=== PATIENT | female | born 1955 | race Caucasian/White ===

== ENCOUNTER 2020-07-26 04:55 | Inpatient (IN) | payer SELFPAY ==
[~2020-07-26] VITALS: Ht 162.6 cm; Wt 67.6 kg
[2020-07-26] VITALS (15 sets, daily range): BP systolic 74–146; BP diastolic 46–128
[2020-07-26] MEDS ORDERED: METHYLPREDNISOLONE SOD SUCC 125 MG/2ML VIAL ONE (05:19)
[2020-07-26] MEDS ORDERED: ALBUTEROL SULF 0.083% NEB SOLN 3 ML NEB ONE (05:32)
[2020-07-26] MEDS ORDERED: CEFEPIME 1GM/NS 0.9% 50 ML 50 ML IV ONE (05:47)
[2020-07-26] MEDS ORDERED: SODIUM CHLORIDE 0.9% 1000ML 2,000 ML ONE (05:47)
[2020-07-26] MEDS ORDERED: SODIUM CHLORIDE 0.9% 1000ML 700 ML IV STA (06:32)
[2020-07-26] MEDS ORDERED: SODIUM CHLORIDE 0.9% 1000ML 1,000 ML IV STA (06:32)
[2020-07-26] MEDS ORDERED: CEFEPIME 1GM/NS 0.9% 50 ML 50 ML IV STA (06:32)
[2020-07-26] MEDS ORDERED: ALBUTEROL/IPRATROPIUM 3 ML NEB NEB ONE (06:45)
[2020-07-26] MEDS ORDERED: METHYLPREDNISOLONE SOD SUCC 125 MG/2ML VIAL IV ONE (06:45)
[2020-07-26 06:53] LABS: B-TYPE NATRIURETIC PEPTIDE2 278.6 pg/mL (0-100)
[2020-07-26 06:55] LABS: CALCIUM 9.4 mg/dL (8.4-10.2); CREATINE KINASE MB 1.3 ng/mL (0-5.0); CREATININE, SERUM 1.04 mg/dL (0.57-1.11)
--- NOTE | 2020-07-26 06:57 | NUR ---
walking rounds with mago frank
[2020-07-26 07:02] LABS: BASOPHILS % 0.4 % (0.0-1.0); EOSINOPHILS # (AUTO) 0.1 (0.0-0.4); HEMATOCRIT 40.8 % (34.2-44.1); HEMOGLOBIN 13.4 g/dL (12.0-16.0); LYMPHOCYTES # (AUTO) 1.5 (1.0-3.2); LYMPHOCYTES % 15.1 % (18.0-39.1); MEAN CORPUSCULAR HEMOGLOBIN 34.1 pg (28-32); MEAN CORPUSCULAR HGB CONC 32.8 g/dL (31-35); MEAN CORPUSCULAR VOLUME 103.8 fL (81-99); MONOCYTES # (AUTO) 0.7 (0.2-0.8); MONOCYTES % 6.8 % (4.4-11.3); NEUTROPHILS # (AUTO) 7.8 (2.1-6.9); NEUTROPHILS % 76.4 % (38.7-80.0); PLATELET COUNT 193 x10e3/uL (140-360); RED BLOOD COUNT 3.93 x10e6/uL (3.6-5.1); RED CELL DISTRIBUTION WIDTH 13.7 % (11.7-14.4)
[2020-07-26 07:09] LABS: ALBUMIN 3.7 g/dL (3.5-5.0); ALBUMIN/GLOBULIN RATIO 1.1 (0.8-2.0)
[2020-07-26] MEDS ORDERED: VANCOMYCIN 1GM/NS 250 ML 250 ML IV ONE (07:15)
[2020-07-26] MEDS ORDERED: VANCOMYCIN 1GM/NS 250 ML 250 ML ONE (07:18)
[2020-07-26] MEDS ORDERED: SODIUM CHLORIDE 0.9% 1000ML 1,000 ML IV SCH (07:30)
[2020-07-26] MEDS: AZITHROMYCIN 500MG/NS 250 ML 250 ML IV SCH (08:06)
[2020-07-26] MEDS ORDERED: METOPROLOL TARTRATE INJ 1 MG/ML VIAL IV PRN (08:30)
[2020-07-26] MEDS ORDERED: POLYETHYLENE GLYCOL 3350 17 GM PACK PO PRN (08:30)
[2020-07-26] MEDS ORDERED: ONDANSETRON HCL INJ 2MG/ML 2ML 2 MG/ML VIAL IV PRN (08:30)
[2020-07-26] MEDS: DOCUSATE SODIUM 100 MG CAP PO SCH ×2 (09:00→15:29)
[2020-07-26 09:37] LABS: BILIRUBIN,URINE NEGATIVE (NEGATIVE); CLARITY,URINE CLEAR (CLEAR); COLOR,URINE YELLOW (YELLOW); KETONES,URINE NEGATIVE (NEGATIVE); LEUKOCYTE ESTERASE ,URINE NEGATIVE (NEGATIVE); NITRITE,URINE NEGATIVE (NEGATIVE); PROTEIN,URINE DIPSTICK NEGATIVE (NEGATIVE); URINE UROBILINOGEN 0.2 mg/dL (0.2 - 1)
[2020-07-26 09:38] LABS: EPITHELIAL CELLS,URINE RARE /LPF; MUCUS,URINE FEW (RARE); WBC,URINE (MAN) 0-5 /HPF (0-5)
[2020-07-26] MEDS ORDERED: SODIUM CHLORIDE 0.9% 50ML 50 ML ONE (09:38)
[2020-07-26] MEDS ORDERED: IOPAMIDOL 370 MG/ML 200 ML INFUS..BTL INJ ONE ×2 (09:38→23:07)
--- NOTE | 2020-07-26 09:43 | Diagnostic Imaging Report ---
EXAM: CT Chest WITH contrast- Pulmonary Embolism Protocol INDICATION: ^[id number] ^0840 ^SHORTNESS OF BREATH: PE PROTOCOL COMPARISON: X-ray dated the same day TECHNIQUE: Chest was scanned utilizing a multidetector helical scanner from the lung apex through the level of the diaphragm after administration of IV contrast. Thin section reconstructions were obtained with special concentration on the pulmonary arteries. Coronal and sagittal reformations were obtained. Pulmonary embolism protocol was performed. IV CONTRAST: 100 cc of Isovue 370 RADIATION DOSE: Total DLP: 437 mGy*cm Dose modulation, iterative reconstruction, and/or weight based adjustment of the mA/kV was utilized to reduce the radiation dose to as low as reasonably achievable. COMPLICATIONS: None FINDINGS: LINES/ TUBES: None. PULMONARY ARTERIES: Main pulmonary artery is of normal caliber measuring up to 2.6 cm in diameter. Negative for main, sagittal, lobar, segmental pulmonary embolism. LUNGS, PLEURA AND AND AIRWAYS: There is severe scarring at the right lung apex with loculated pleural fluid and pleural thickening. Mild to moderate paraseptal and centrilobular emphysematous changes are noted. Small basilar pleural effusions are noted. There are multifocal groundglass opacities throughout the lingula, left lower lobe and right lower lobe. Direct origin of the right upper lobe bronchus on the mainstem trachea is noted, this area appears to be occluded. The remaining large airways are patent. HEART AND MEDIASTINUM: The thyroid gland is normal. Multiple enlarged mediastinal lymph nodes are noted. No suspicious hilar or axillary adenopathy. The heart is normal in size. No evidence of right ventricular enlargement or bowing of the interventricular septum. There is no pericardial effusion. Thoracic aorta demonstrates moderate multifocal calcified atherosclerotic changes. Coronary artery calcifications are noted. 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 Large amount of plaque is identified the origins of the celiac and superior mesenteric artery. 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 Multiple scattered calcifications are identified throughout the liver BONES: No acute osseous abnormality. Diffuse osseous demineralization is noted. No suspicious lytic or blastic lesion is identified. SOFT TISSUES: Unremarkable. IMPRESSION: 1. Negative for pulmonary embolism or secondary signs of right heart strain. 2. Multifocal groundglass opacities within the lingula, right and left lower lobes concerning for atypical multifocal infection. Consider aspiration in the appropriate clinical setting. Small bilateral pleural effusions are noted. Probable reactive mediastinal adenopathy is noted. 3. Background of centrilobular and paraseptal emphysematous changes with severe right apical scarring/pleural thickening, likely related to chronic right upper lobe atelectasis. Consider obtaining any prior outside hospital CT imaging for comparison versus follow-up CT in 3-6 months to document stability. 4. 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 Moderate plaque is identified the origins of the celiac artery. Signed by: Yrn Silva MD on 07/26/2020 9:39 AM
--- NOTE | 2020-07-26 09:44 | Diagnostic Imaging Report ---
TECHNIQUE: Frontal view of the chest. INDICATION: ^[id number] ^0530 ^SHORTNESS OF BREATH COMPARISON: CT chest performed the same day DISCUSSION: Limited evaluation due to portable technique. Lines and hardware: Overlying EKG leads are noted. Heart and mediastinum: Within normal limits. Lungs and pleura: Right apical opacity probably relates to chronic right upper lobe atelectasis/scarring. Multifocal ill-defined interstitial opacities are noted throughout the lungs. Question superimposed consolidation at the right lung base. Soft tissues and bones: No acute abnormality. IMPRESSION: Multifocal interstitial airspace opacities with chronic appearing scarring/atelectasis of the right upper lobe/apical pleura. See separately reported CT chest for further details. Signed by: Yrn Silva MD on 07/26/2020 9:41 AM
[2020-07-26 09:59] LABS: ABG PCO2 35 mmHg (35-45); ABG PH 7.35 (7.35-7.45)
[2020-07-26 10:00] LABS: ABG HCO3 19 mmol/L (22-26); ABG PO2 130 mmHg (80-105); ABG TCO2 19.4
[2020-07-26] MEDS: FAMOTIDINE 20 MG/2 ML VIAL IV SCH ×2 (10:37→16:28)
[2020-07-26] MEDS: ALBUTEROL SULF 0.083% NEB SOLN 3 ML NEB NEB SCH ×2 (11:00→15:00)
[2020-07-26] MEDS: MEROPENEM 1GM 100 ML IV SCH ×2 (11:19→21:26)
--- NOTE | 2020-07-26 12:39 | Consultation ---
DATE OF CONSULTATION: 07/26/2020 PULMONARY CRITICAL CARE CONSULTATION: CHIEF COMPLAINT: Dyspnea and difficulty breathing. HISTORY OF PRESENT ILLNESS: The patient is a 64-year-old woman. She has a history of a right upper lobe lobectomy for a Pancoast tumor. She also has a history of COPD. She required hospitalization four weeks ago at [facility] for pneumonia with sepsis and respiratory failure. Since leaving the hospital, she has required some inhaler therapy and she has been awaiting an outpatient appointment with Dr. Dominique Ham at the [facility]. Recently, she noted more difficulty breathing as well as increased congestion and cough. She does not complain of fevers or chest pain. PAST SURGICAL HISTORY: Status post right upper lobe lobectomy for Pancoast tumor. PAST MEDICAL HISTORY: 1. Hypertension. 2. Mitral valve disease. It was detected last month while the patient was at [facility]. 3. COPD. 4. Prior history of lung cancer. SOCIAL HISTORY: The patient quit smoking. She is not a drinker. ALLERGIES: THE PATIENT IS ALLERGIC TO AMLODIPINE, CIPROFLOXACIN, CLINDAMYCIN AND PENICILLINS. FAMILY HISTORY: Noncontributory. REVIEW OF SYSTEMS: The patient is afebrile. The patient has no headache or neck pain. The patient is not having any chest pain. She does have difficulty breathing and some cough. She has no abdominal pain. She has no nausea or vomiting. She does complain of some leg edema. PHYSICAL EXAMINATION: VITAL SIGNS: The blood pressure is 94/64, saturation is now 98% on BiPAP and the heart rate is 110 to 120. T-max is 99.5. HEENT: Shows no facial swelling or erythema. LYMPHATIC Shows no submandibular, cervical, or supraclavicular adenopathy. CARDIAC: Reveals regular rate and rhythm with normal S1 and S2. LUNGS: Auscultation of lungs reveals decreased breath sounds at the bases. There is a prolonged expiratory phase. ABDOMEN: Soft and nontender. There is no rebound or guarding. EXTREMITIES: Shows 1 to 2+ leg edema. LABORATORY DATA: White blood cell count is 10.1, hemoglobin is 13.4 and platelet count is 193. BUN to creatinine ratio is 11 to 1.04. Carbon dioxide is 22 and the other electrolytes are within normal limits. RADIOGRAPHIC DATA: CT scan of the chest shows no pulmonary embolism. There are some ground-glass opacities in the lingula, right and left lower lobes, concerning for possible infection. The patient also has some emphysema. IMPRESSION: 1. Acute on chronic respiratory failure requiring salvage with BiPAP. 2. Aspiration pneumonia with sepsis, present on admission. 3. Chronic obstructive pulmonary disease with acute exacerbation. 4. Remote history of lung cancer. 5. Chronic systolic congestive heart failure. 6. Mitral valve disease. PLAN: 1. The patient will receive broad-spectrum antibiotics to cover for any healthcare acquired pathogens. 2. The patient has received intravenous fluid bolus for sepsis. 3. Solu-Medrol. 4. Continue BiPAP as needed. 5. Repeat echocardiogram. 6. Diuretics if necessary. Flex Juarez MD [facility]/MODL /[id number]
[2020-07-26 13:42] LABS: CREATINE KINASE MB 1.8 ng/mL (0-5.0)
[2020-07-26] MEDS ORDERED: DIAZEPAM5 MG PO (14:05)
[2020-07-26] MEDS: IPRATROPIUM BROMIDE 0.02% 2.5 ML NEB NEB SCH ×2 (15:00→19:50)
[2020-07-26] MEDS: DIAZEPAM 2 MG TAB PO SCH (15:29)
[2020-07-26] MEDS: ACETAMINOPHEN 325 MG TAB PO PRN ×2 (15:30→23:46)
[2020-07-26] MEDS ORDERED: LACTATED RINGER'S 1,000 ML INJ SCH (16:30)
[2020-07-26] MEDS: LEVALBUTEROL HCL SOLN NEBU 0.63 MG/3 ML NEB INH PRN (19:50)
[2020-07-26 20:41] LABS: CREATINE KINASE MB 2.8 ng/mL (0-5.0)
[2020-07-26] MEDS ORDERED: DEXMEDETOMIDINE HCL 200 MCG in SODIUM CHLORIDE 0.9% 50ML 48 ML IV PRN (20:45)
[2020-07-26] MEDS ORDERED: DEXMEDETOMIDINE 200MCG/NS 50ML 50 ML IV ONE (21:12)
[2020-07-26 21:20] LABS: ABG PCO2 33 mmHg (35-45); ABG PH 7.41 (7.35-7.45); ABG PO2 122 mmHg (80-105)
[2020-07-26 21:21] LABS: ABG HCO3 21 mmol/L (22-26); ABG TCO2 22
[2020-07-26] MEDS: METHYLPREDNISOLONE SOD SUCC 40 MG/ML VIAL 1ML IV SCH (21:26)
[2020-07-26] MEDS: HEPARIN SOD (PORCINE) 5,000 UNIT/ML VIAL SC SCH (21:26)
[2020-07-26] MEDS: BENZONATATE 100 MG CAP PO PRN (21:27)
--- NOTE | 2020-07-26 23:04 | Diagnostic Imaging Report ---
EXAMINATION: CHEST XRAY LINE PLACEMENT INDICATION: ^resp. distrss ^[id number] ^2215 ^Y COMPARISON: 07/26/2020 FINDINGS: AP view TUBES and LINES: Left PICC in place with tip projecting over mid SVC. LUNGS: Lungs are well inflated. Again seen diffuse bilateral airspace opacities, slightly improved on the right side. PLEURA: Small right pleural effusion. No visible pneumothorax. HEART AND MEDIASTINUM: The cardiomediastinal silhouette is unremarkable. BONES AND SOFT TISSUES: No acute osseous lesion. Soft tissues are unremarkable. UPPER ABDOMEN: No free air under the diaphragm. IMPRESSION: Left PICC in place with tip projecting over mid SVC. No pneumothorax. Bilateral airspace opacities, slightly improved on the right side. Small right pleural effusion. Signed by: Dr. Albino Shaffer MD on 07/26/2020 11:00 PM
[2020-07-26] MEDS: ONDANSETRON HCL INJ 2MG/ML 2ML 2 MG/ML VIAL IV PRN (23:46)
[2020-07-26] MEDS: TEMAZEPAM 15 MG CAP PO PRN (23:46)
[2020-07-27] VITALS (16 sets, daily range): BP systolic 64–111; BP diastolic 42–83
--- NOTE | 2020-07-27 02:56 | History and Physical ---
ADDENDUM: Dr. Serra with Infectious Disease has been consulted to assist in managing IV antibiotic. Her home medications, Spiriva, Tessalon Perles, and diazepam [place]. [place] [address] (as opposed to 679[address]). Modified barium swallow is planned for tomorrow. We will keep patient in ICU status for now. Dictated by Sebastian Coy, ELIZABETH MD [facility]/MODL /[id number]
[2020-07-27] MEDS: IPRATROPIUM BROMIDE 0.02% 2.5 ML NEB NEB SCH ×4 (03:25→20:45)
--- NOTE | 2020-07-27 04:07 | History and Physical ---
PRIMARY CARE PHYSICIAN: Dr. Ayan Ward. The patient states she has also seen in the past Dr. 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 Morrison. CHIEF COMPLAINT: Shortness of breath. HISTORY OF PRESENT ILLNESS: The patient is a 64-year-old female, former smoker, admitted via the emergency department by paramedics due to shortness of breath and wheezing with onset 1 hour prior to arrival, but apparently has been having shortness of breath above baseline for about one month. She has had previous COPD exacerbations. The patient had severe shortness of breath and bilateral wheezes in the emergency department and is requiring BiPAP currently in ICU care, bed 195. She had been at [facility] one month ago due to pneumonia with sepsis and respiratory failure. Since leaving the hospital she has required some inhaler therapy and has been awaiting an outpatient appointment with Dr. Dominique Ham at the [facility]. She also reports having an appointment with the general laborer at [facility] and she has mitral valve disease as well as calcifications of her subclavian arteries. PAST MEDICAL HISTORY: COPD (pneumonia with sepsis and respiratory failure about one month ago at [facility]), hypertension, mitral valve disease, non-small cell lung cancer, chronic respiratory failure, chronic systolic congestive heart failure. insomnia, TIA with bilateral peripheral vision loss and right hemiparesis, calcification of subclavian arteries, peptic ulcers, anxiety, cervical cancer, Montrell syndrome, migraines, osteoarthritis, scoliosis, seizures and reportedly antiepileptic medications make the seizures worse. PAST SURGICAL HISTORY: Hysterectomy, right upper lobe lobectomy for Pancoast tumor. FAMILY HISTORY: Father had lung collapse and Parkinson disease as well as CLL leukemia. Sister had COPD. Mother had heart disease. SOCIAL HISTORY: The patient lives with her . 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 She is considering having her sister come and live with her. She is a former smoker, half pack a day for 20 years, i.e. 10-pack years. She states she has not had alcohol 10 years. Denies any history of alcoholism. Denies previous use of illicit drugs. ALLERGIES: SHE HAS MULTIPLE ALLERGIES INCLUDING, BUT NOT LIMITED TO, AMLODIPINE, NITROFURANTOIN, SULFAMETHOXAZOLE, CLINDAMYCIN, ATENOLOL, HYOSCYAMINE, SALICYLATE, PENICILLINS, SODIUM PHOSPHATE, IRBESARTAN, TOPIRAMATE, LOSARTAN, PHENAZOPYRIDINE, FOSINOPRIL, CIPROFLOXACIN, AND CLINDAMYCIN. THE PATIENT IS KNOWN TO TAKE ATIVAN AND VALIUM AT HOME, BUT CURRENTLY NOT A COMPLETE LIST AVAILABLE. REVIEW OF SYSTEMS: A 14-point review of systems was completed. CONSTITUTIONAL: The patient states she is hot. Denies chills or fever. EYES: Decreased peripheral vision bilaterally, which she attributes to having history of TIA. EAR, NOSE, AND THROAT: Difficulty swallowing. RESPIRATORY: Chronic nonproductive cough, shortness of breath. GENITOURINARY: Denies difficulty urinating. PSYCHIATRIC: Denies history of psychiatric problems other than anxiety. INTEGUMENTARY: Denies skin problems. CARDIOVASCULAR: She had left chest pain earlier when she was short of breath, but this is improved. GASTROINTESTINAL: Admits to having acid reflux, nausea, bilateral lower abdominal pain, abdominal swelling especially on the left side of the abdomen and diarrhea. She states that she had two diarrheal stools yesterday. MUSCULOSKELETAL: Weakness on the right side secondary to TIA. NEUROLOGIC: Aforementioned right-sided weakness, headache, and dizziness. ENDOCRINE: Denies any history of prediabetes or diabetes. HEMATOLOGIC/LYMPHATIC: Denies any bleeding or bruising. All other systems negative except as noted above. PHYSICAL EXAMINATION: VITAL SIGNS: Temperature 98.1, pulse 123, blood pressure 83/63 subsequently 146/123, respiratory rate 34, oxygen saturation 98%. Height 5 feet 4 inches. Weight 156 pounds. BMI 26.77. GENERAL: Supine in bed, in no acute distress. Currently on BiPAP and able to communicate effectively. LUNGS: Minimal wheezing bilaterally. BiPAP settings 12/5, FiO2 of 35%, respiratory rate 14, I time 1.0, positive inspiratory pressure 13, minute ventilation 19.9. HEENT: EOMI, glasses. Sclerae anicteric. NECK: Supple. No lymphadenopathy, thyromegaly, or JVD noted. CARDIOVASCULAR: Regular rate and rhythm without murmur. Lactated Ringer's infusing at 100 mL an hour into a peripheral IV. ABDOMEN: Bowel sounds positive. Soft. Distention noted mostly on the left side of the abdomen. Li catheter with clear yellow urine. EXTREMITIES: No pitting edema. No clubbing, cyanosis, or signs of DVT. NEUROLOGICAL: GCS 15, nonfocal. LABORATORY DATA: WBCs 10.14, hemoglobin 13.4, hematocrit 40.8, platelets 193,000, neutrophils 76.4. ABG this morning, pH 7.35, pCO2 35, PO2 130, HC03 19, oxygen saturation 99%, base excess of -6, FiO2 35%. Sodium 143, potassium 4.0, chloride 105, CO2 22, anion gap 20, BUN 11, creatinine 1.04, estimated GFR 54, glucose 166, calcium 9.4, total bilirubin 0.4, AST 15, ALT 7, alkaline phosphatase 74. Creatine kinase 82, CK-MB 1.3, troponin I 0.014, total protein 7.1, albumin 3.7. Lactic acid 4.6, then 4.1, then 5.0 and at 1630 hours was 6.1. Creatine kinase 87, CK-MB 1.8, troponin I 0.005. Please note that was the second set of cardiac biomarkers. B-type natriuretic peptide 278.6. Urinalysis showed a small amount of blood, negative for nitrites, negative for leukocyte esterase, RBC 6-10, few mucus, no bacteria. Coronavirus PCR collected 07/26, collected with the results pending. Influenza types A and B were negative. Blood cultures x2 are pending. IMAGING/OTHER PROCEDURES: Preliminary echocardiogram has shown ejection fraction of 50%. Chest x-ray at 0530 in the morning showed multifocal interstitial airspace opacities with chronic appearing scarring/atelectasis of the right upper lobe/apical pleura. CT of the chest was negative for pulmonary embolism or secondary signs of right heart strain. 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 Moderate plaque is identified at the origins of the celiac artery. A 12-lead EKG showed sinus tachycardia with a heart rate of 126. ASSESSMENT/PLAN: 1. Acute on chronic respiratory failure with BiPAP salvage. Pulmonology/Critical Care Medicine has been consulted and following. Continue BiPAP for now and wean as tolerated. 2. Aspiration pneumonia with severe sepsis, POA, rule out COVID. Per the CT of the chest results the patient has multifocal ground-glass opacities concerning for atypical multifocal infection. Pulmonology following. Appreciate recommendations. Continue DuoNebs as well as vancomycin, azithromycin, Merrem Solu-Medrol 40 mg IV every 12 hours and IV antibiotics. Lactic acid progressively increasing, monitor closely. Continue lactated Ringer's at 100 mL an hour. We will avoid bolus at this particular time. WBCs 10.1, afebrile. PICC line placement pending. 3. Chronic obstructive pulmonary disease with acute exacerbation, remote history of lung cancer. Continue neb treatments. Pulmonology following. 4. Chronic systolic congestive heart failure with mitral valve disease. Strict intake and output. Continue to monitor chest x-ray results, preliminary ejection fraction 50%, monitor closely. Dr. Newton with Cardiology had followed the patient at [facility]. 5. Bilateral lower quadrant abdominal pain with nausea and diarrhea, left abdominal distention noted. Gastroenterology consulted. KUB ordered. The patient will likely also need a CT of the abdomen and pelvis. Appreciate recommendations from GI, abdominal pain control. 6. Acute on chronic anxiety. Apparently, the patient was taking diazepam 5 mg at home due to anxiety, she is currently on 2 mg. Monitor closely. 7. 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 Gastroenterology consulted, appreciate recommendations. 8. History of TIA with right-sided hemiparesis. Supportive care, offloading, turn q.2 hours. 9. Prophylaxis, IV Pepcid, SCDs. Inpatient status, billing code [id number], time spent 60 minutes. Dictated by Sebastian Coy, ELIZABETH MD [facility]/JARREDL /[id number]
[2020-07-27] MEDS: MEROPENEM 1GM 100 ML IV SCH ×3 (04:24→21:00)
[2020-07-27 04:52] LABS: BASOPHILS % 0.2 % (0.0-1.0); HEMATOCRIT 30.6 % (34.2-44.1); HEMOGLOBIN 10.2 g/dL (12.0-16.0); LYMPHOCYTES # (AUTO) 0.5 (1.0-3.2); LYMPHOCYTES % 4.8 % (18.0-39.1); MEAN CORPUSCULAR HEMOGLOBIN 34.9 pg (28-32); MEAN CORPUSCULAR HGB CONC 33.3 g/dL (31-35); MEAN CORPUSCULAR VOLUME 104.8 fL (81-99); MONOCYTES # (AUTO) 0.2 (0.2-0.8); MONOCYTES % 1.8 % (4.4-11.3); NEUTROPHILS # (AUTO) 9.7 (2.1-6.9); NEUTROPHILS % 92.5 % (38.7-80.0); PLATELET COUNT 151 x10e3/uL (140-360); RED BLOOD COUNT 2.92 x10e6/uL (3.6-5.1); RED CELL DISTRIBUTION WIDTH 14.4 % (11.7-14.4)
[2020-07-27 05:12] LABS: ALBUMIN/GLOBULIN RATIO 1.1 (0.8-2.0); ALKALINE PHOSPHATASE 56 IU/L (40-150); ANION GAP 12.3 mmol/L (8-16); BLOOD UREA NITROGEN 15 mg/dL (7-26); BUN/CREATININE RATIO 17 (6-25); CALCIUM 8.3 mg/dL (8.4-10.2); CARBON DIOXIDE 25 mmol/L (22-29); CHLORIDE 109 mmol/L (98-107); CREATININE, SERUM 0.88 mg/dL (0.57-1.11); EST GLOMERULAR FILTRATION RATE > 60 ML/MIN (60-); GLUCOSE 167 mg/dL (74-118); POTASSIUM 4.3 mmol/L (3.5-5.1); SODIUM 142 mmol/L (136-145)
[2020-07-27 05:14] LABS: ALANINE AMINOTRANSFERASE < 6 IU/L (0-55)
[2020-07-27 05:38] LABS: CHOL/HDL RATIO 5.9 (3.0-3.6); PHOSPHORUS 3.8 MG/DL (2.3-4.7)
[2020-07-27 05:56] LABS: THYROID STIMULATING HORMONE 0.62 uIU/mL (0.350-4.940)
[2020-07-27] MEDS ORDERED: NOREPINEPHRINE 8 MG/D5W 250 ML 250 ML ONE (06:18)
[2020-07-27] MEDS: NOREPINEPHRINE 8 MG/D5W 250 ML 250 ML IV PRN ×2 (06:38→22:49)
[2020-07-27] MEDS ORDERED: NOREPINEPHRINE 8 MG/D5W 250 ML 250 ML IV PRN (06:45)
[2020-07-27] MEDS: LEVALBUTEROL HCL SOLN NEBU 0.63 MG/3 ML NEB INH PRN ×2 (07:00→12:35)
--- NOTE | 2020-07-27 07:08 | Diagnostic Imaging Report ---
EXAM: Abdomen Views INDICATION: ^abd pain, Lt abd swelling, nausea, diarrhea, PUI ^Y COMPARISON: None FINDINGS: Nonobstructive bowel gas pattern. No signs of pneumoperitoneum. Moderate colonic stool burden. Right lower quadrant round calcification, projecting over right iliac wing, could be soft tissue calcification or osseous sclerotic focus. No acute osseous abnormality. Degenerative changes of lower lumbar spine. Vascular calcifications. Partially seen small right pleural effusion and airspace opacities. IMPRESSION: 1. Nonobstructive bowel gas pattern. 2. Moderate colonic stool burden, could represent constipation. Signed by: Dr. Albino Shaffer MD on 07/27/2020 7:05 AM
[2020-07-27] MEDS: VANCOMYCIN 1GM/NS 250 ML 250 ML IV SCH (08:41)
--- NOTE | 2020-07-27 11:08 | Consultation ---
DATE OF CONSULTATION: 07/27/2020 HISTORY OF PRESENT ILLNESS: This patient is a 64-year-old female, who has history of right upper lobe lobectomy for a Pancoast tumor and COPD. She was in a hospital in [place] for pneumonia. The patient comes in with shortness of breath, not feeling well. The patient is being admitted. Apparently, she was waiting for appointment at [facility]. She became short of breath. 911 was called. She was brought here. The patient, who have history of Pancoast tumor, hypertension, mitral valve disease, COPD, and lung cancer. PAST SURGICAL HISTORY: As above. SOCIAL HISTORY: There is no smoking, drug abuse, or alcohol abuse. She quit smoking some time ago. ALLERGIES: AMLODIPINE, CIPRO, CLINDAMYCIN, AND PENICILLIN. FAMILY HISTORY: Could not be obtained. REVIEW OF SYSTEMS: She does have shortness of breath. There is no fever. No nausea. No vomiting. The patient was admitted on July 26. The patient is currently in intensive care unit, on BiPAP. MEDICATION LIST: At present time, she is on vancomycin, meropenem, and azithromycin. LABORATORY DATA: Her blood cultures are negative. White count 10.53, hemoglobin of 10.2, and hematocrit 30. COVID-19 was negative. Influenza was negative. Sodium 142, potassium 4.3, and creatinine 0.88. Lactic acid 4.1 on admission. White count of 10.53, hemoglobin 10.2, and her platelet of 151. She had a chest CT, which was negative for pulmonary embolism, but multifocal glass opacities. PHYSICAL EXAMINATION: VITAL SIGNS: The patient, who is currently afebrile, heart rate 95, respiration 20, and blood pressure 71/48. HEENT: Normocephalic. NECK: Supple. CHEST: Few crackles bilateral. HEART: S1 and S2. ABDOMEN: Soft. Bowel sounds present. EXTREMITIES: No edema. SKIN: No rash. IMPRESSION: Sepsis on admission, respiratory failure, pneumonia, aspiration, superimposed, chronic obstructive pulmonary disease, multiple allergies, history of lung cancer before, history of congestive heart failure, and mitral valve disease. Agree with vancomycin and meropenem. Obtain sputum for cultures. Recheck CBC. Recheck chem panel. Respiratory support. We will follow. MD [facility]/CHERYL /[id number]
[2020-07-27] MEDS: METHYLPREDNISOLONE SOD SUCC 40 MG/ML VIAL 1ML IV SCH ×2 (11:12→21:00)
[2020-07-27] MEDS: FAMOTIDINE 20 MG/2 ML VIAL IV SCH ×2 (11:12→18:50)
[2020-07-27] MEDS: ASPIRIN 81 MG CHEW TAB PO SCH (11:13)
[2020-07-27] MEDS: HEPARIN SOD (PORCINE) 5,000 UNIT/ML VIAL SC SCH ×2 (11:13→21:01)
[2020-07-27] MEDS: DOCUSATE SODIUM 100 MG CAP PO SCH ×2 (11:13→18:50)
[2020-07-27] MEDS: AZITHROMYCIN 500MG/NS 250 ML 250 ML IV SCH (11:13)
[2020-07-27] MEDS: DIAZEPAM 2 MG TAB PO SCH ×2 (11:13→21:00)
[2020-07-27] MEDS: TIOTROPIUM 18 MCG INH POWDER INH SCH (11:14)
[2020-07-27] MEDS: BENZONATATE 100 MG CAP PO PRN (11:14)
--- NOTE | 2020-07-27 12:59 | Progress Note ---
DATE: 07/27/2020 SUBJECTIVE: The patient is receiving Levophed at 8 mcg through the PICC line. She was on nasal cannula this morning, but asked to be placed back on BiPAP. She reports some anxiety. PHYSICAL EXAMINATION: VITAL SIGNS: The blood pressure is now 100/50 with a pulse of 88. Respiratory rate is 18. HEENT: Shows no facial swelling or erythema. LYMPHATIC: Shows no submandibular, cervical, or supraclavicular adenopathy. CARDIAC: Reveals tachycardia with normal S1 and S2. LUNGS: Auscultation of lungs reveals decreased breath sounds at the bases. There is a prolonged expiratory phase. ABDOMEN: Soft and nontender. There is no rebound or guarding. EXTREMITIES: Show no leg edema or calf tenderness. There is no cyanosis or clubbing. SKIN: Shows no rashes. NEUROLOGICAL: Shows no focal abnormalities. LABORATORY DATA: The white blood cell count is 10.5 and the hemoglobin is 10.2. The platelet count is 151. The BUN to creatinine ratio is 15 to 0.88 and the other electrolytes are within normal limits. IMPRESSION: 1. [id number] respiratory failure. 2. Chronic obstructive pulmonary disease with acute exacerbation. 3. Remote history of lung cancer. 4. Pneumonia with sepsis, present on admission. 5. Chronic systolic congestive heart failure. 6. Mitral valve disease. PLAN: 1. Continue Levophed as needed. 2. Solu-Medrol. 3. Continue oxygen with BiPAP as needed. 4. Consider additional sedation with Precedex. 5. Prognosis is poor. Flex Juarez MD [facility]/MODL /[id number]
[2020-07-27] MEDS: DEXMEDETOMIDINE 200MCG/NS 50ML 50 ML IV PRN ×2 (13:35→22:50)
--- NOTE | 2020-07-27 15:40 | Diagnostic Imaging Report ---
Modified barium swallow, 07/27/2020. History: Dysphagia. Fluoro time: 2 min. Dose: 3.99 mGy (BEE) Discussion: Fluoroscopic observation and imaging of the oral cavity, oropharynx, and hypopharynx was performed in the lateral projection during swallowing of liquids and solids, administered by speech pathology. There is no evidence of penetration or aspiration. See speech pathologist report for complete findings. Signed by: Gilles Looney on 07/27/2020 3:36 PM
--- NOTE | 2020-07-27 17:30 | Progress Note ---
DATE: 07/27/2020 CONSULTING PHYSICIANS: 1. Dr. Shazia Serra with Infectious Disease. 2. Dr. Flex Juarez with Pulmonology. 3. Dr. Viet Goldsmith with Gastroenterology. SUBJECTIVE: The patient is supine in bed. Per the nurse, she is not getting out of bed, has not been in a chair. She ate 100% of her breakfast but not feeling well at lunch. The patient is asleep on BiPAP at present time of encounter about 3:00 p.m. in the afternoon. PHYSICAL EXAMINATION: VITAL SIGNS: Temperature 97.6, pulse 94, blood pressure 64/47, prior to that 73/42, at the time of encounter 90/61, respirations 16, oxygen saturation 97%. Intake and output 2000 mL in and 1000 mL out. GENERAL: Supine, asleep on BiPAP. LUNGS: Chronic nonproductive cough with complaints of shortness of breath. BiPAP settings 12/5, FiO2 35%. Respiratory rate 14, inspiratory time 1.0, positive inspiratory pressure of 13, minute ventilation 21.4. HEENT: Oropharynx clear. EOMI. NECK: Supple. CARDIOVASCULAR: Regular rate and rhythm. No murmur. Currently Levophed infusing at 15 mcg/minute. ABDOMEN: Bowel sounds positive. Soft, nontender, mild distention on the left side of the abdomen. EXTREMITIES: No pitting edema. No clubbing, cyanosis, or signs of DVT. NEUROLOGIC: GCS 14, eye 3, verbal 5, motor 6. Nonfocal. LABORATORY DATA: WBCs 10.53, hemoglobin 10.2, hematocrit 30.6, platelets 151. Sodium 142, potassium 4.3, chloride 109, CO2 25, anion gap 12.3, BUN 15, creatinine 0.88, estimated GFR greater than 60, glucose 167. Hemoglobin A1c 6.2%. Calcium 8.3, total bilirubin 0.4, AST 12, ALT less than 6, alkaline phosphatase 56, total protein 5.7, albumin 3.0, phosphorus 3.8, magnesium 2.0, triglycerides 211, cholesterol 252, LDL 167, HDL 43. TSH 0.62. Serology; coronavirus PCR negative. Influenza types A and B negative. Blood cultures with no growth after 24 hours. IMAGING/OTHER: Abdominal x-ray showed nonobstructive bowel gas pattern. Moderate colonic stool burden, could represent constipation. Modified barium swallow completed today and patient passed without signs of aspiration. Final echocardiogram results show moderate concentric left ventricular hypertrophy. Normal ejection fraction of 65% to 70% Diastolic filling pattern indicates impaired relaxation. Mild aortic valve sclerosis without stenosis. Moderate mitral annular calcification present. ASSESSMENT AND PLAN: 1. Acute on chronic respiratory failure with BiPAP salvage. Continue BiPAP p.r.n. and wean as tolerated. The patient tends to want to use BiPAP and uses it more or less as a crutch. Encouraged the patient not to use BiPAP unless really needed. 2. Aspiration pneumonia with severe sepsis, POA. CT of the chest has shown multifocal ground-glass opacities concerning for atypical multifocal infection. Pulmonology/Critical Care Medicine following. Continue Solu-Medrol, Merrem, azithromycin, vancomycin, and Duonebs. Lactic acid 4.1 (6.1). WBCs 10.5 (10.14), afebrile. Monitor closely. Continue care in ICU. Wean Levophed off as tolerated. 3. Chronic obstructive pulmonary disease with acute exacerbation, remote history of lung cancer. Continue neb treatments. 4. Chronic systolic congestive heart failure with mitral valve disease. Strict intake and output. Final echo ejection fraction 65% to 70%. Monitor chest x-ray results. 5. Bilateral lower quadrant abdominal pain with nausea and diarrhea, left abdominal distention. Gastroenterology following. KUB showed constipation with nonobstructive bowel gas pattern. Pain control. 6. Acute on chronic anxiety. The patient is on diazepam 2 mg q.12 hours. Apparently, she takes 5 mg at home due to anxiety. However, the patient was taking 5 mg twice a day at home, but this is an excessive dosage and monitor closely. 7. 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 Gastroenterology consulted. Appreciate recommendations. 8. History of TIA with right-sided hemiparesis. Supportive care. Offloading orders entered to get patient out of bed to chair. Nursing staff and physical therapy consulted to eval and treat. 9. Prophylaxis, IV Pepcid and SCDs. Inpatient status, billing code [id number], time spent 35 minutes. DISPOSITION: Case management consulted for LTACH evaluation. Dictated by Sebastian Coy, ELIZABETH MD THEODORE Ruelas/CHERYL Dhaliwal: 07/27/2020 15:46:09 /[id number]
[2020-07-27] MEDS: TEMAZEPAM 15 MG CAP PO PRN (23:53)
[2020-07-28] VITALS (25 sets, daily range): BP systolic 76–126; BP diastolic 36–88
[2020-07-28] MEDS: IPRATROPIUM BROMIDE 0.02% 2.5 ML NEB NEB SCH ×4 (01:40→19:00)
[2020-07-28] MEDS: MEROPENEM 1GM 100 ML IV SCH ×3 (02:43→19:46)
[2020-07-28] MEDS: DEXMEDETOMIDINE 200MCG/NS 50ML 50 ML IV PRN ×3 (04:15→10:00)
[2020-07-28] MEDS: PANTOPRAZOLE 40 MG 10ML VIAL IV SCH ×2 (04:15→16:14)
[2020-07-28 04:43] LABS: BASOPHILS % 0.1 % (0.0-1.0); HEMOGLOBIN 11.5 g/dL (12.0-16.0); LYMPHOCYTES # (AUTO) 0.7 (1.0-3.2); LYMPHOCYTES % 4.4 % (18.0-39.1); MEAN CORPUSCULAR HGB CONC 32.9 g/dL (31-35); MEAN CORPUSCULAR VOLUME 103.6 fL (81-99); MONOCYTES # (AUTO) 0.5 (0.2-0.8); NEUTROPHILS # (AUTO) 14.3 (2.1-6.9); NEUTROPHILS % 89.3 % (38.7-80.0); PLATELET COUNT 189 x10e3/uL (140-360); RED BLOOD COUNT 3.38 x10e6/uL (3.6-5.1); RED CELL DISTRIBUTION WIDTH 13.8 % (11.7-14.4)
[2020-07-28 05:03] LABS: ANION GAP 15.2 mmol/L (8-16); BLOOD UREA NITROGEN 18 mg/dL (7-26); BUN/CREATININE RATIO 22 (6-25); CALCIUM 8.7 mg/dL (8.4-10.2); CARBON DIOXIDE 25 mmol/L (22-29); CHLORIDE 103 mmol/L (98-107); CREATININE, SERUM 0.83 mg/dL (0.57-1.11); EST GLOMERULAR FILTRATION RATE > 60 ML/MIN (60-); GLUCOSE 196 mg/dL (74-118); POTASSIUM 4.2 mmol/L (3.5-5.1); SODIUM 139 mmol/L (136-145)
[2020-07-28 05:38] LABS: FERRITIN 156.95 ng/mL (4.63-204.00)
[2020-07-28] MEDS: TIOTROPIUM 18 MCG INH POWDER INH SCH (06:00)
[2020-07-28] MEDS: VANCOMYCIN 1GM/NS 250 ML 250 ML IV SCH (06:05)
--- NOTE | 2020-07-28 08:30 | NUR ---
GAVE PACKET OF INFORMATION WITH [facility] [employer] FOR ASSISTANCE WITH LOW TO NO INCOME TO PATIENT. RESOURCES THAT PATIENT MAY BE ABLE TO FOLLOW UP UPON DISCHARGE. PT EDUCATED ON EACH RESOURCE AND UNDERSTANDING HOW TO FOLLOW UP TO SEE IF QUALIFIED FOR EACH RESOURCE.
--- NOTE | 2020-07-28 08:31 | NUR ---
[facility] ORDER PUT IN MY MD, SPOKE WITH HIM ABOUT PAYOR [employer], SUPPOSED TO CANCEL ORDER.
[2020-07-28] MEDS ORDERED: CYANOCOBALAMIN INJ 1,000 MCG/ML VIAL IM SCH (08:45)
[2020-07-28] MEDS: DIAZEPAM 2 MG TAB PO SCH ×2 (09:06→20:14)
[2020-07-28] MEDS: FAMOTIDINE 20 MG/2 ML VIAL IV SCH ×2 (09:06→16:14)
[2020-07-28] MEDS: ASPIRIN 81 MG CHEW TAB PO SCH (09:06)
[2020-07-28] MEDS: METHYLPREDNISOLONE SOD SUCC 40 MG/ML VIAL 1ML IV SCH ×2 (09:06→20:14)
[2020-07-28] MEDS: AZITHROMYCIN 500MG/NS 250 ML 250 ML IV SCH (09:06)
[2020-07-28] MEDS: DOCUSATE SODIUM 100 MG CAP PO SCH ×2 (09:06→16:14)
[2020-07-28] MEDS: HEPARIN SOD (PORCINE) 5,000 UNIT/ML VIAL SC SCH ×2 (09:07→20:14)
[2020-07-28] MEDS: BENZONATATE 100 MG CAP PO PRN (09:19)
--- NOTE | 2020-07-28 09:30 | NUR ---
Brother Maximilian phoned back with [facility] for transfer [facility] accepts this company,[id number] Patient signed Ambulance consent placed on chart.
[2020-07-28] MEDS ORDERED: LACTATED RINGER'S 500 ML INJ ONE (11:15)
[2020-07-28] MEDS: ACETAMINOPHEN 325 MG TAB PO PRN ×2 (11:40→22:56)
--- NOTE | 2020-07-28 12:25 | Progress Note ---
DATE: 07/28/2020 SUBJECTIVE: The patient still has some anxiety and some dyspnea. She is sitting upright and preparing to work with physical therapy. She is still on Levophed at 7 mcg. PHYSICAL EXAMINATION: VITAL SIGNS: Blood pressure is 194/64, saturations 96% on 3 L, and the pulse is 84. HEENT: No facial swelling or erythema. LYMPHATIC: Shows no submandibular, cervical, or supraclavicular adenopathy. CARDIAC: Reveals regular rate and rhythm with normal S1, S2. LUNGS: Auscultation of lungs reveals rhonchorous breath sounds bilaterally. There is no wheezing. ABDOMEN: Soft and nontender. There is no rebound or guarding. EXTREMITIES: Shows no leg edema or calf tenderness. There is no cyanosis or clubbing. SKIN: Shows no rashes. NEUROLOGICAL: Shows no focal abnormalities. RADIOGRAPHIC DATA: Chest x-ray shows some interstitial opacities suggestive of possible pneumonia. Modified barium swallow shows no evidence of aspiration or penetration. LABORATORY DATA: White blood cell count is 16, hemoglobin is 11.5, and platelet count is 189. The BUN to creatinine ratio is 18 to 0.83. Other electrolytes are within normal limits. Albumin is 3. IMPRESSION: 1. Qaeah-tw-lnaaecb respiratory failure. 2. Chronic obstructive pulmonary disease with acute exacerbation. 3. Pneumonia with sepsis, present on admission. 4. Remote history of lung cancer. 5. Mitral valve disease. PLAN: 1. Continue Solu-Medrol. 2. Continue bronchodilators. 3. Continue meropenem and vancomycin. 4. Some additional fluids today. 5. Wean off Levophed. Flex Juarez MD [facility]/MODL /[id number]
--- NOTE | 2020-07-28 12:30 | NUR ---
Prince Cortes at bedside
--- NOTE | 2020-07-28 13:25 | NUR ---
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
--- NOTE | 2020-07-28 14:12 | NUR ---
GAVE SELF PAY PRICES TO PATIENT FOR HOME HEALTH, SHE STATES SHE CANNOT AFFORD, STATES SHE IS ON GOLD CARD AT [facility] AND IS SCHEDULING APPOINTMENT POST DISCHARGE TO BE ABLE TO GET THEIR ASSISTANCE IN SETTING UP EXTRA SERVICES.
--- NOTE | 2020-07-28 14:15 | Progress Note ---
DATE: 07/28/2020 CONSULTING PHYSICIANS: 1. Dr. Shazia Serra with Infectious Disease. 2. Dr. Flex Juarez with Pulmonology/Critical Care Medicine. 3. Dr. Viet Goldsmith with Gastroenterology. SUBJECTIVE: The patient reports coughing up thick blood-tinged sputum. She is breathing much easier and not requiring the BiPAP today. She is less sleepy since the Precedex was discontinued earlier. Blood pressure 89/63 during encounter at 12:22. She remains on Levophed drip and is currently receiving lactated Ringer's bolus of 500 mL IV once, says her last bowel movement was three days ago. The patient reports taking diazepam 5 mg b.i.d. for about six or seven years. She was very anxious yesterday, states she cried today. Father had Parkinson's disease. I explained to the patient that 5 mg twice a day is a really large dose and that it would behoove her and it would likely benefit her to have that dose wean down. OBJECTIVE: VITAL SIGNS: Temperature 98.1, afebrile, pulse is 87, earlier today blood pressure 95/63, prior to that 106/88, respirations 20, oxygen saturation 100% on 3 L of oxygen via nasal cannula. Her BiPAP settings when she uses it are 12/5, FiO2 of 35%, respiratory rate set at 14, inspiratory time 1.0. Intake and output 1430 mL in and 2950 mL out. GENERAL: Supine, head of bed elevated. No acute distress. LUNGS: Chronic cough. Diminished in the bases, otherwise clear. HEENT: Oropharynx clear. EOMI. NECK: Supple. CARDIOVASCULAR: Regular rate and rhythm without murmur, currently Levophed infusing at 7 mcg/minute. ABDOMEN: Bowel sounds positive. Soft, nontender. Mild distention on the left side of the abdomen. EXTREMITIES: No pitting edema. No clubbing, cyanosis, or signs of DVT. NEUROLOGIC: GCS 15. Nonfocal. LABORATORY DATA: WBC 16.04, hemoglobin 11.5, hematocrit 35, and platelets 189. Sodium 139, potassium 4.2, chloride 103, CO2 of 25, anion gap 15.2, BUN 18, creatinine 0.83, estimated GFR greater than 60, glucose 196, and calcium 8.7, iron 70, TIBC 371, percent saturation 19, transferrin 265, ferritin 156.95. Vitamin B12 low at 170, folate pending. IMAGING: No new imaging results. Modified barium swallow yesterday had shown no evidence of aspiration or penetration. ASSESSMENT/PLAN: 1. Acute on chronic respiratory failure with BiPAP salvage. Continue supplemental oxygen on nasal cannula and use BiPAP only p.r.n. Encourage patient not to use BiPAP unless absolutely needed. Continue methylprednisolone, bronchodilators. 2. Aspiration pneumonia with severe sepsis, POA. WBCs 16 (10.53), neutrophils 89.3%. Continue Merrem and vancomycin. Monitor vancomycin trough every third dose. Continue DuoNebs. Wean Levophed off as tolerated. She continues to be hypotensive. We will add midodrine 5 mg t.i.d., LR 500 mL bolus once today. CT of the chest had shown multifocal ground-glass opacities concerning for atypical multifocal infection. Appreciate recommendations from Pulmonology/Critical Care Medicine. 3. Chronic obstructive pulmonary disease with acute exacerbation, remote history of lung cancer. Continue bronchodilators. Tessalon Perles. Supplemental oxygen. Tiotropium. 4. Chronic systolic congestive heart failure with mitral valve disease. Final echocardiogram ejection fraction 65% to 70%. Monitor chest x-ray results. Strict intake and output, 1430 mL in and 2950 mL out. 5. Bilateral lower quadrant abdominal pain with nausea and diarrhea, left abdominal distention. Minimal pain with gentle palpation today. Diarrhea has resolved. She still complains of some nausea and heartburn. However, Protonix is improving this considerably. Gastroenterology following, considering MiraLAX. 6. Acute on chronic anxiety. Diazepam 2 mg every 12 hours. Precedex was discontinued. 7. Possible occlusion of the superior mesenteric artery per CT of the chest. Gastroenterology following. 8. History of transient ischemic attack with right-sided hemiparesis. Supportive care. The patient to get out of bed today. Physical therapy evaluation and treatment. 9. Prophylaxis, IV Pepcid and SCDs. 10. Inpatient status, billing code [id number], ICU bed 195, time spent 35 minutes. 11. Disposition: The patient is self-pay in LTACH, evaluation has been discontinued. DISCHARGE PLAN: Home with home health, midodrine added; wean Levophed off as tolerated. Transfer to floor when able. Dictated by Sebastian Coy NP MD THEODORE Ruelas/CHERYL /[id number]
[2020-07-28] MEDS: MIDODRINE HCL 5 MG TABLET PO SCH (16:14)
[2020-07-28] MEDS: ONDANSETRON HCL INJ 2MG/ML 2ML 2 MG/ML VIAL IV PRN (16:14)
--- NOTE | 2020-07-28 17:18 | NUR ---
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 She was in a hospital in [place] for pneumonia. The patient comes in with shortness of breath, not feeling well. The patient is being admitted. Apparently, she was waiting for appointment at [facility]. She became short of breath. 911 was called. She was brought here. The patient, who have history of Pancoast tumor, hypertension, mitral valve disease, COPD, and lung cancer. REVIEW OF SYSTEMS: She does have shortness of breath. There is no fever. No nausea. No vomiting. The patient was admitted on July 26. MEDICATION LIST: At present time, she is on vancomycin, meropenem LABORATORY DATA: reviewed PHYSICAL EXAMINATION: VITAL SIGNS: per chart, in ICU on levophed HEENT: Normocephalic. atraumatic NECK: Supple. no JVD CHEST: Few crackles bilateral. HEART: S1 and S2. no s3. s4 ABDOMEN: Soft. Bowel sounds present. EXTREMITIES: No edema. moves all SKIN: No rash. no joint swelling IMPRESSION: Sepsis on admission respiratory failure pneumonia aspiration, chronic obstructive pulmonary disease history of lung cancer before history of congestive heart failure, and mitral valve disease. PLAN: continue with vanc and merrem recheck labs supportive care on n/c Genny Sweet MSN, ACCOUNTING OFFICE MANAGER, [facility] Anthony Kat M.D.
[2020-07-28] MEDS: TEMAZEPAM 15 MG CAP PO PRN (20:14)
[2020-07-29] VITALS (25 sets, daily range): BP systolic 86–126; BP diastolic 54–97
[2020-07-29] MEDS: IPRATROPIUM BROMIDE 0.02% 2.5 ML NEB NEB SCH ×4 (01:00→19:10)
[2020-07-29 03:28] LABS: BASOPHILS % 0.1 % (0.0-1.0); HEMATOCRIT 36.9 % (34.2-44.1); HEMOGLOBIN 12.1 g/dL (12.0-16.0); LYMPHOCYTES # (AUTO) 1.1 (1.0-3.2); LYMPHOCYTES % 7.2 % (18.0-39.1); MEAN CORPUSCULAR HEMOGLOBIN 33.4 pg (28-32); MEAN CORPUSCULAR HGB CONC 32.8 g/dL (31-35); MEAN CORPUSCULAR VOLUME 101.9 fL (81-99); MONOCYTES # (AUTO) 0.5 (0.2-0.8); MONOCYTES % 3.4 % (4.4-11.3); NEUTROPHILS # (AUTO) 12.8 (2.1-6.9); NEUTROPHILS % 88.2 % (38.7-80.0); PLATELET COUNT 212 x10e3/uL (140-360); RED BLOOD COUNT 3.62 x10e6/uL (3.6-5.1); RED CELL DISTRIBUTION WIDTH 13.2 % (11.7-14.4)
[2020-07-29] MEDS: MEROPENEM 1GM 100 ML IV SCH ×3 (03:28→19:12)
[2020-07-29] MEDS: PANTOPRAZOLE 40 MG 10ML VIAL IV SCH ×2 (03:28→16:56)
[2020-07-29] MEDS: DIPHENHYDRAMINE HCL 25 MG CAP PO PRN ×2 (03:28→09:50)
[2020-07-29 03:46] LABS: BLOOD UREA NITROGEN 21 mg/dL (7-26); BUN/CREATININE RATIO 23 (6-25); CARBON DIOXIDE 27 mmol/L (22-29); CHLORIDE 101 mmol/L (98-107); CREATININE, SERUM 0.91 mg/dL (0.57-1.11); EST GLOMERULAR FILTRATION RATE > 60 ML/MIN (60-); GLUCOSE 210 mg/dL (74-118); MAGNESIUM 2.3 MG/DL (1.3-2.1); PHOSPHORUS 2.7 MG/DL (2.3-4.7); SODIUM 139 mmol/L (136-145)
[2020-07-29] MEDS: TIOTROPIUM 18 MCG INH POWDER INH SCH (06:00)
[2020-07-29] MEDS: VANCOMYCIN 1GM/NS 250 ML 250 ML IV SCH (07:40)
[2020-07-29] MEDS: METHYLPREDNISOLONE SOD SUCC 40 MG/ML VIAL 1ML IV SCH ×2 (07:59→22:00)
[2020-07-29] MEDS: MIDODRINE HCL 5 MG TABLET PO SCH ×3 (07:59→16:56)
[2020-07-29] MEDS: FAMOTIDINE 20 MG/2 ML VIAL IV SCH ×2 (07:59→16:57)
[2020-07-29] MEDS: AZITHROMYCIN 500MG/NS 250 ML 250 ML IV SCH (07:59)
[2020-07-29] MEDS: HEPARIN SOD (PORCINE) 5,000 UNIT/ML VIAL SC SCH ×2 (08:00→22:08)
[2020-07-29] MEDS: ASPIRIN 81 MG CHEW TAB PO SCH (08:00)
[2020-07-29] MEDS: DIAZEPAM 2 MG TAB PO SCH (08:00)
[2020-07-29] MEDS: DOCUSATE SODIUM 100 MG CAP PO SCH ×2 (08:00→16:57)
[2020-07-29] MEDS: CYANOCOBALAMIN INJ 1,000 MCG/ML VIAL IM SCH (09:31)
[2020-07-29] MEDS: ACETAMINOPHEN 325 MG TAB PO PRN ×2 (09:51→23:02)
[2020-07-29] MEDS ORDERED: BUSPIRONE HCL 5 MG TAB PO PRN (11:15)
[2020-07-29] MEDS ORDERED: LORAZEPAM 0.5 MG TAB PO PRN (11:15)
--- NOTE | 2020-07-29 15:24 | NUR ---
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 She was in a hospital in [place] for pneumonia. The patient comes in with shortness of breath, not feeling well. The patient is being admitted. Apparently, she was waiting for appointment at [facility]. She became short of breath. 911 was called. She was brought here. The patient, who have history of Pancoast tumor, hypertension, mitral valve disease, COPD, and lung cancer. REVIEW OF SYSTEMS: She does have shortness of breath. There is no fever. No nausea. No vomiting. The patient was admitted on July 26. MEDICATION LIST: At present time, she is on vancomycin, meropenem LABORATORY DATA: reviewed PHYSICAL EXAMINATION: VITAL SIGNS: per chart, in ICU on levophed HEENT: Normocephalic. atraumatic NECK: Supple. no JVD CHEST: Few crackles bilateral. HEART: S1 and S2. no s3. s4 ABDOMEN: Soft. Bowel sounds present. EXTREMITIES: No edema. moves all SKIN: No rash. no joint swelling IMPRESSION: Sepsis on admission respiratory failure pneumonia aspiration, chronic obstructive pulmonary disease history of lung cancer before history of congestive heart failure, and mitral valve disease. PLAN: continue with vanc and merrem get vanc trough supportive care on n/c Genny Sweet MSN, EDITING INTERN, [facility] Anthony Kat M.D.
[2020-07-29] MEDS: SERTRALINE HCL 50 MG TAB PO SCH (16:57)
--- NOTE | 2020-07-29 17:00 | Progress Note ---
DATE: 07/29/2020 SUBJECTIVE: The patient has less dyspnea. She is now on nasal cannula. She has less anxiety, but she is complaining of depression. PHYSICAL EXAMINATION: VITAL SIGNS: Blood pressure is 105/79, saturation is 100% on 2 L, and the pulse is 83. HEENT: Shows no facial swelling or erythema. LYMPHATIC: Shows no submandibular, cervical, or supraclavicular adenopathy. CARDIAC: Reveals regular rate and rhythm with normal S1 and S2. LUNGS: Auscultation of lungs reveals clear breath sounds bilaterally. There is no wheezing. ABDOMEN: Soft and nontender. There is no rebound or guarding. EXTREMITIES: Show no leg edema or calf tenderness. There is no cyanosis or clubbing. SKIN: Shows no rashes. NEUROLOGICAL: Shows no focal abnormalities. IMPRESSION: 1. Qqtgg-ej-taavtrz respiratory failure. 2. Chronic obstructive pulmonary disease with acute exacerbation. 3. Pneumonia with sepsis, present on admission. 4. Remote history of lung cancer. 5. Mitral valve disease. PLAN: 1. Continue Solu-Medrol and wean as tolerated. 2. Continue bronchodilators. 3. Continue meropenem and vancomycin. 4. Wean off Levophed. Flex Juarez MD [facility]/MODL /[id number]
[2020-07-29] MEDS: TEMAZEPAM 15 MG CAP PO PRN (22:26)
[2020-07-30] VITALS (25 sets, daily range): BP systolic 87–131; BP diastolic 50–89
[2020-07-30] MEDS: IPRATROPIUM BROMIDE 0.02% 2.5 ML NEB NEB SCH ×4 (02:00→19:50)
[2020-07-30] MEDS: MEROPENEM 1GM 100 ML IV SCH ×3 (03:37→20:00)
[2020-07-30] MEDS: PANTOPRAZOLE 40 MG 10ML VIAL IV SCH ×2 (03:38→16:11)
[2020-07-30] MEDS: TIOTROPIUM 18 MCG INH POWDER INH SCH (06:00)
--- NOTE | 2020-07-30 06:08 | Diagnostic Imaging Report ---
EXAMINATION: CHEST SINGLE (PORTABLE) INDICATION: ^resp failure COMPARISON: 07/26/2020 FINDINGS: AP view TUBES and LINES: Stable left PICC. LUNGS: Lungs are well inflated. Unchanged right lung volume loss. Diffuse bilateral airspace opacities, improved at the bases. PLEURA: No significant pleural effusion or pneumothorax. HEART AND MEDIASTINUM: The cardiomediastinal silhouette is unremarkable. BONES AND SOFT TISSUES: No acute osseous lesion. Unchanged right apical scarring, surgical clips, and old right superior rib fracture deformities. UPPER ABDOMEN: No free air under the diaphragm. IMPRESSION: Slightly improved bilateral airspace opacities when compared to prior x-ray Signed by: Dr. Albino Shaffer MD on 07/30/2020 6:04 AM
[2020-07-30 06:14] LABS: BASOPHILS % 0.1 % (0.0-1.0); HEMATOCRIT 35.7 % (34.2-44.1); HEMOGLOBIN 11.9 g/dL (12.0-16.0); LYMPHOCYTES # (AUTO) 1.4 (1.0-3.2); LYMPHOCYTES % 10.3 % (18.0-39.1); MEAN CORPUSCULAR HEMOGLOBIN 33.6 pg (28-32); MEAN CORPUSCULAR HGB CONC 33.3 g/dL (31-35); MEAN CORPUSCULAR VOLUME 100.8 fL (81-99); MONOCYTES # (AUTO) 0.7 (0.2-0.8); MONOCYTES % 5.1 % (4.4-11.3); NEUTROPHILS # (AUTO) 11.2 (2.1-6.9); NEUTROPHILS % 83.3 % (38.7-80.0); PLATELET COUNT 220 x10e3/uL (140-360); RED BLOOD COUNT 3.54 x10e6/uL (3.6-5.1); RED CELL DISTRIBUTION WIDTH 13.2 % (11.7-14.4)
[2020-07-30] MEDS: ACETAMINOPHEN 325 MG TAB PO PRN ×3 (06:30→23:16)
[2020-07-30 06:35] LABS: ALANINE AMINOTRANSFERASE 14 IU/L (0-55); ALBUMIN 3.2 g/dL (3.5-5.0); ALBUMIN/GLOBULIN RATIO 1.1 (0.8-2.0); ALKALINE PHOSPHATASE 53 IU/L (40-150); ANION GAP 11.8 mmol/L (8-16); BLOOD UREA NITROGEN 17 mg/dL (7-26); BUN/CREATININE RATIO 21 (6-25); CALCIUM 8.2 mg/dL (8.4-10.2); CARBON DIOXIDE 29 mmol/L (22-29); CHLORIDE 102 mmol/L (98-107); EST GLOMERULAR FILTRATION RATE > 60 ML/MIN (60-); GLUCOSE 160 mg/dL (74-118); POTASSIUM 3.8 mmol/L (3.5-5.1); SODIUM 139 mmol/L (136-145)
[2020-07-30] MEDS: VANCOMYCIN 1GM/NS 250 ML 250 ML IV SCH (08:27)
[2020-07-30] MEDS: MIDODRINE HCL 5 MG TABLET PO SCH ×3 (08:27→16:12)
[2020-07-30] MEDS: ASPIRIN 81 MG CHEW TAB PO SCH (08:28)
[2020-07-30] MEDS: METHYLPREDNISOLONE SOD SUCC 40 MG/ML VIAL 1ML IV SCH ×2 (08:28→21:32)
[2020-07-30] MEDS: CYANOCOBALAMIN INJ 1,000 MCG/ML VIAL IM SCH (08:28)
[2020-07-30] MEDS: DOCUSATE SODIUM 100 MG CAP PO SCH ×3 (08:28→16:12)
[2020-07-30] MEDS: FAMOTIDINE 20 MG/2 ML VIAL IV SCH ×2 (08:28→16:12)
[2020-07-30] MEDS: AZITHROMYCIN 500MG/NS 250 ML 250 ML IV SCH (08:28)
[2020-07-30] MEDS: HEPARIN SOD (PORCINE) 5,000 UNIT/ML VIAL SC SCH ×2 (08:29→21:15)
[2020-07-30] MEDS: SERTRALINE HCL 50 MG TAB PO SCH ×2 (08:32→16:12)
[2020-07-30] MEDS: POLYETHYLENE GLYCOL 3350 17 GM PACK PO SCH ×2 (09:00→16:12)
--- NOTE | 2020-07-30 10:07 | Progress Note ---
DATE: 07/30/2020 SUBJECTIVE: The patient is feeling better. She is off pressors. She has less congestion. She is on nasal cannula. PHYSICAL EXAMINATION: VITAL SIGNS: Blood pressure is 104/74, saturation is 99% on 2 L and the pulse is 88. HEENT: Shows no facial swelling or erythema. LYMPHATIC: Shows no submandibular, cervical or supraclavicular adenopathy. CARDIAC: Reveals regular rate and rhythm. Normal S1 and S2. LUNGS: Auscultation of lungs reveals crackles at the bases. There is no wheezing. ABDOMEN: Soft, nontender. There is no rebound or guarding. EXTREMITIES: Shows no leg edema or calf tenderness. LABORATORY DATA: White blood cell count is 13.4, hemoglobin is 11.9. The platelet count is 220. The BUN to creatinine ratio is normal. The other electrolytes are within normal limits and the albumin is 3.2. RADIOGRAPHIC DATA: Chest x-ray shows improving bilateral infiltrates. IMPRESSION: 1. Acute on chronic respiratory failure. 2. Pneumonia with sepsis, present on admission. 3. Chronic obstructive pulmonary disease. 4. Remote history of lung cancer. PLAN: 1. Decrease Solu-Medrol. 2. Complete antibiotics. 3. Transfer out of intensive care unit. MD CASEY Mathew/CHERYL /[id number]
--- NOTE | 2020-07-30 13:12 | NUR ---
Physical Therapists at bedside see notes.
--- NOTE | 2020-07-30 13:24 | NUR ---
Vitals 120/62 o2 sats 100%, RR18, HR 78 Talking on phone with laughing and denies pain or ARRIETA
--- NOTE | 2020-07-30 18:00 | Progress Note ---
DATE: 07/30/2020 SUBJECTIVE: Ms. Bolanos is lying in bed comfortably. There is no new complaint. REVIEW OF SYSTEMS: HEENT: Negative. PULMONARY: Negative. CARDIAC: Negative. PHYSICAL EXAMINATION: GENERAL: Currently alert, oriented. VITAL SIGNS: Stable, currently afebrile. HEENT: She is not icteric. NECK: Supple. CHEST: Clear bilaterally. HEART: S1, S2. ABDOMEN: Soft. Bowel sounds present. EXTREMITIES: No edema. SKIN: No rash. IMPRESSION: Respiratory failure, pneumonia on admission, and history of lung cancer. Continue antibiotic for 7 days. Wean down steroid. Follow up with CT as an outpatient until total resolution. We will follow. MD GER Tee/CHERYL /[id number]
[2020-07-30] MEDS: TEMAZEPAM 15 MG CAP PO PRN (23:06)
[2020-07-31] VITALS (25 sets, daily range): BP systolic 93–131; BP diastolic 55–87
[2020-07-31] MEDS: IPRATROPIUM BROMIDE 0.02% 2.5 ML NEB NEB SCH ×4 (02:15→20:00)
[2020-07-31] MEDS: MEROPENEM 1GM 100 ML IV SCH ×3 (03:46→19:48)
[2020-07-31] MEDS: PANTOPRAZOLE 40 MG 10ML VIAL IV SCH ×2 (04:10→18:06)
[2020-07-31 05:32] LABS: BASOPHILS % 0.1 % (0.0-1.0); EOSINOPHILS % 0.1 % (0.0-6.0); HEMATOCRIT 35.3 % (34.2-44.1); HEMOGLOBIN 11.8 g/dL (12.0-16.0); LYMPHOCYTES # (AUTO) 1.4 (1.0-3.2); LYMPHOCYTES % 14.2 % (18.0-39.1); MEAN CORPUSCULAR HEMOGLOBIN 34.3 pg (28-32); MEAN CORPUSCULAR HGB CONC 33.4 g/dL (31-35); MEAN CORPUSCULAR VOLUME 102.6 fL (81-99); MONOCYTES # (AUTO) 0.5 (0.2-0.8); MONOCYTES % 5.1 % (4.4-11.3); NEUTROPHILS # (AUTO) 7.8 (2.1-6.9); NEUTROPHILS % 78.9 % (38.7-80.0); PLATELET COUNT 184 x10e3/uL (140-360); RED BLOOD COUNT 3.44 x10e6/uL (3.6-5.1); RED CELL DISTRIBUTION WIDTH 13.4 % (11.7-14.4)
[2020-07-31] MEDS: TIOTROPIUM 18 MCG INH POWDER INH SCH (06:00)
[2020-07-31 06:04] LABS: ANION GAP 12.9 mmol/L (8-16); BLOOD UREA NITROGEN 15 mg/dL (7-26); BUN/CREATININE RATIO 20 (6-25); CALCIUM 8.1 mg/dL (8.4-10.2); CARBON DIOXIDE 28 mmol/L (22-29); CHLORIDE 103 mmol/L (98-107); CREATININE, SERUM 0.76 mg/dL (0.57-1.11); EST GLOMERULAR FILTRATION RATE > 60 ML/MIN (60-); GLUCOSE 116 mg/dL (74-118); POTASSIUM 3.9 mmol/L (3.5-5.1); SODIUM 140 mmol/L (136-145)
[2020-07-31] MEDS: VANCOMYCIN 1GM/NS 250 ML 250 ML IV SCH (06:58)
[2020-07-31] MEDS: ACETAMINOPHEN 325 MG TAB PO PRN ×2 (06:58→19:49)
--- NOTE | 2020-07-31 07:03 | NUR ---
Report Given to RN. GOETZ
[2020-07-31] MEDS: FAMOTIDINE 20 MG/2 ML VIAL IV SCH ×2 (09:23→18:06)
[2020-07-31] MEDS: CYANOCOBALAMIN INJ 1,000 MCG/ML VIAL IM SCH (09:23)
[2020-07-31] MEDS: DOCUSATE SODIUM 100 MG CAP PO SCH ×2 (09:23→18:06)
[2020-07-31] MEDS: SERTRALINE HCL 50 MG TAB PO SCH ×2 (09:23→18:06)
[2020-07-31] MEDS: MIDODRINE HCL 5 MG TABLET PO SCH ×3 (09:23→18:06)
[2020-07-31] MEDS: ASPIRIN 81 MG CHEW TAB PO SCH (09:23)
[2020-07-31] MEDS: POLYETHYLENE GLYCOL 3350 17 GM PACK PO SCH ×2 (09:23→18:06)
[2020-07-31] MEDS: METHYLPREDNISOLONE SOD SUCC 40 MG/ML VIAL 1ML IV SCH ×2 (09:23→20:46)
[2020-07-31] MEDS: HEPARIN SOD (PORCINE) 5,000 UNIT/ML VIAL SC SCH ×2 (09:24→20:16)
--- NOTE | 2020-07-31 10:38 | NUR ---
Dr Juarez at bedside
--- NOTE | 2020-07-31 11:55 | NUR ---
Phoned Viet Briceño office left message with answering service Leno regarding patient complaining of throat hurt due to reflux patient states."
--- NOTE | 2020-07-31 12:27 | NUR ---
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 240cc
--- NOTE | 2020-07-31 12:34 | NUR ---
Patients refluz has subsided since the Ativan given not 10mni ago laughing and feels she can eat.
--- NOTE | 2020-07-31 14:17 | Progress Note ---
DATE: 07/31/2020 SUBJECTIVE: The patient is seen and evaluated. Discussed with Dr. Serra. Discussed with the patient. Discussed with the nurse. REVIEW OF SYSTEMS: No nausea, vomiting, fever, chills, chest pain, or headache. The patient has occasional vertigo, especially positional when she stands up or she sits up. PHYSICAL EXAMINATION: VITAL SIGNS: Temperature 98.4, pulse is 85, respiration 20, and blood pressure 94/61. GENERAL: Awake and alert. No acute distress. CV: S1 and S2. CHEST: Equal expansion. Clear to auscultation. No acute distress. ABDOMEN: Soft and nontender. Bowel sounds positive. HEENT: Moist. No pallor. No JVD. MEDICATIONS: Reviewed. As far as Infectious Disease point of view, the patient is on meropenem, methylprednisolone 30 mg IV push q.12 hours, and vancomycin IV. LABORATORY STUDIES: 07/31/2020; white count 9.93, improved from 16.04, hemoglobin 11.8, and platelets 184. Sodium 140, potassium 3.9, and creatinine 0.76. Serology; coronavirus PCR not detected. On 07/26, influenza A and B negative. MICROBIOLOGY: Cultures negative so far. ASSESSMENT AND PLAN: 1. Respiratory failure. 2. Pneumonia, on admission. 3. History of lung cancer. 4. Continue with antibiotics. Follow up CT as outpatient until total resolution. Discussed with staff. The patient possibly getting carotid Doppler soon. Continue to monitor the patient clinically and follow with the labs. Discussed with Dr. Serra in details. Please refer to chart for more information. Dictated by Avila Kerns PA-C (Al) Shazia Serra MD /MODL /[id number]
--- NOTE | 2020-07-31 15:17 | Consultation ---
DATE OF CONSULTATION: 07/31/2020 CARDIOLOGY CONSULTATION: REQUESTING PHYSICIAN: Bo Keenan MD REASON FOR CONSULTATION: Superior mesenteric occlusion. HISTORY OF PRESENT ILLNESS: Ms. 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 She reports that she was recently admitted at [facility] with the same complaints and treated for pneumonia with sepsis and respiratory failure. At the moment, she reports she feels well, however, does endorse bilateral groin pain and periumbilical pain in her abdomen, nausea, indigestion, shortness of breath, and fatigue. She denies any chest pain, fever, cough, palpitations, PND, orthopnea, or dysuria. PAST SURGICAL HISTORY: Status post right upper lobe lobectomy, hysterectomy for cervical cancer. PAST MEDICAL HISTORY: As dictated above. SOCIAL HISTORY: . Smoker, who quit smoking one month ago. Denies any alcohol intake or illicit drug use. REVIEW OF SYSTEMS: Negative except as mentioned above. PHYSICAL EXAMINATION: VITAL SIGNS: Temperature 98.4, pulse 85, respiratory rate 20, blood pressure , and oxygen saturation 98% on 2 L nasal cannula. GENERAL: Alert and oriented x3. Resting comfortably in the bed, in no acute distress at the moment. NECK: Supple. No JVD noted. No carotid bruits. LUNGS: Diminished breath sounds in anterior and posterior lower lobes. No crackles. Rhonchi is noted. CARDIOVASCULAR: Regular rate and rhythm 2/6 diastolic murmur noted. ABDOMEN: Normoactive bowel sounds. Tenderness to left and right groin. EXTREMITIES: Lower extremities; left 2+ pedal pulses, right unable to palpate pulses. CARDIOVASCULAR MEDICATIONS: Aspirin 81 mg p.o. daily, heparin 5000 units subcu q.12 hours, midodrine 5 mg p.o. t.i.d. LABORATORY DATA: WBC 9.93, hemoglobin 11.8, hematocrit 35.3, and platelets 184. Sodium 140, potassium 3.9, BUN 15, creatinine 0.76. AST 15, ALT 14. Chest x-ray from this morning with slightly improved bilateral airspace opacity. Chest CT scan on admission with severe multifocal atherosclerotic calcification in the abdominal aorta and near-complete occlusion of the abdominal aorta at the level of the renal artery. There appears to be a complete occlusion of this superior mesenteric artery with moderate plaque identified in the origin of the celiac artery. Negative for pulmonary embolism. Abdominal x-ray with nonobstructive bowel patterns, moderate colonic stool pattern noted, which could represent constipation. IMPRESSION: 1. Superior mesenteric artery occlusion. 2. atherosclerotic changes. 3. Reported history of carotid artery stenosis. 4. History of cerebrovascular accident. 5. Hypertension. 6. Chronic obstructive pulmonary disease. 7. Pneumonia. 8. Bradycardia. 9. History of breast cancer. 10. Former smoker. 11. Reported history of mitral valve disease. 12. History of lung cancer, status post lobectomy. RECOMMENDATION: Medical management of above in addition of a statin therapy. The patient will require angiogram for further evaluation and recommendations will follow. For now, maintain on telemetry at all time. Continue the above-listed cardiac medications. Continue treatment of pneumonia and COPD per psychological aide. We will continue to monitor this patient very closely. Thank you for this consultation and allowing us to participate in this patient's care. Dictated by Ana Rothman NP MD KIRA GrossmanV/MODL /[id number]
--- NOTE | 2020-07-31 19:00 | NUR ---
Obtained informd consent for Abdominal Angiogram for Am, Informed patient not to eat or drink anything after midnight.
--- NOTE | 2020-07-31 19:05 | NUR ---
Viet Briceño phoned back ordered Reglan 10mg IV Q6 hrs
--- NOTE | 2020-07-31 20:14 | NUR ---
Spoke with Aida Figueroa POLLUTION CONTROL CHEMIST, hold heparin this PM pending abd angiogram in am
[2020-07-31] MEDS: ATORVASTATIN 10 MG TAB PO SCH (20:47)
[2020-07-31] MEDS: TEMAZEPAM 15 MG CAP PO PRN (20:48)
[2020-07-31] MEDS: DIPHENHYDRAMINE HCL 25 MG CAP PO PRN (20:48)
[2020-07-31] MEDS: METOCLOPRAMIDE HCL 10 MG/2ML VIAL IV SCH (23:49)
[2020-08-01] VITALS (23 sets, daily range): BP systolic 71–155; BP diastolic 52–89
[2020-08-01] MEDS: IPRATROPIUM BROMIDE 0.02% 2.5 ML NEB NEB SCH ×5 (01:00→20:30)
[2020-08-01] MEDS ORDERED: MAGNESIUM HYDROXIDE 30 ML UDC PO ONE ×2 (01:15→23:45)
[2020-08-01] MEDS: FLUCONAZOLE 200 MG/100 ML 100 ML IV SCH ×2 (01:57→21:42)
[2020-08-01] MEDS: MEROPENEM 1GM 100 ML IV SCH ×3 (03:20→18:07)
[2020-08-01] MEDS: PANTOPRAZOLE 40 MG 10ML VIAL IV SCH ×2 (03:21→16:43)
[2020-08-01] MEDS: TIOTROPIUM 18 MCG INH POWDER INH SCH (06:00)
[2020-08-01] MEDS: METOCLOPRAMIDE HCL 10 MG/2ML VIAL IV SCH ×3 (06:38→16:43)
[2020-08-01] MEDS: VANCOMYCIN 1GM/NS 250 ML 250 ML IV SCH ×2 (06:38→17:14)
[2020-08-01] MEDS: MIDODRINE HCL 5 MG TABLET PO SCH ×3 (08:00→16:43)
[2020-08-01] MEDS: DOCUSATE SODIUM 100 MG CAP PO SCH ×3 (09:00→16:43)
[2020-08-01] MEDS: SERTRALINE HCL 50 MG TAB PO SCH ×3 (09:00→16:43)
[2020-08-01] MEDS: HEPARIN SOD (PORCINE) 5,000 UNIT/ML VIAL SC SCH ×3 (09:00→22:01)
[2020-08-01] MEDS: CYANOCOBALAMIN INJ 1,000 MCG/ML VIAL IM SCH (09:00)
[2020-08-01] MEDS: ASPIRIN 81 MG CHEW TAB PO SCH (09:00)
[2020-08-01] MEDS: POLYETHYLENE GLYCOL 3350 17 GM PACK PO SCH ×3 (09:00→16:43)
[2020-08-01] MEDS: METHYLPREDNISOLONE SOD SUCC 40 MG/ML VIAL 1ML IV SCH ×2 (09:07→21:42)
[2020-08-01] MEDS: FAMOTIDINE 20 MG/2 ML VIAL IV SCH ×2 (09:07→16:43)
--- NOTE | 2020-08-01 10:02 | NUR ---
Dr Jensen at bedside reschedule Angiogram for tomorrow may eat today NPO after MN Ok to give Heparin just hold 1 hour before procedure. Addendum: 08/01/20 at 1131 by Lorri Read RN Ok to administer patient am medications now
[2020-08-01] MEDS: ACETAMINOPHEN 325 MG TAB PO PRN ×2 (11:12→21:59)
--- NOTE | 2020-08-01 11:16 | Progress Note ---
DATE: 08/01/2020 CARDIOLOGY PROGRESS NOTE: SUBJECTIVE: The patient is found sleeping comfortably. Denies any chest pain or shortness of breath. She specifically denies any abdominal pain or postprandial discomfort of her abdomen or pelvis. OBJECTIVE: VITAL SIGNS: Temperature is 98.6, heart rate 72, respirations are 14, blood pressure is 101/74, and oxygen saturation 99% on 2 L nasal cannula. GENERAL: She is a chronically ill-appearing woman, no apparent distress. CARDIOVASCULAR: Regular rate and rhythm. LUNGS: Clear auscultation. ABDOMEN: Soft, nontender, nondistended. EXTREMITIES: No edema. CARDIOVASCULAR MEDICATIONS: Reviewed. LABORATORY DATA: Reviewed. White blood cell count is 9.9, hemoglobin is 11.8, and creatinine 0.76. IMAGING DATA: CT of the chest was reviewed and showed a large amount of calcific changes identified in the proximal partially visualized abdominal aorta with near-complete occlusion of the proximal abdominal aorta with large amount of plaque at the origins of the celiac and superior mesenteric arteries. 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 IMPRESSION: 1. Peripheral arterial disease. 2. Asymptomatic occlusion of the superior mesenteric artery. 3. Aortic occlusion. 4. Carotid artery stenosis. 5. History of cerebrovascular accident. 6. Chronic obstructive pulmonary disease. 7. Pneumonia. 8. Hypertension. 9. Bradycardia. 10. Tobacco abuse. 11. History of lung cancer, status post lobectomy. RECOMMENDATIONS: Continue chronic obstructive pulmonary disease and pneumonia treatment. Continue current cardiovascular medications. Aspirin and statin will be continued. The patient is asymptomatic and denies any postprandial pain. Continue treatment for infectious and COPD causes and the patient likely can undergo abdominal aortography prior to discharge. Again, she is asymptomatic and this is a nonurgent or emergent case. Arsen Peralta DO BM/MODL /[id number]
--- NOTE | 2020-08-01 11:30 | NUR ---
INFECTIOUS DISEASE PROGRESS NOTE DR. ANTHONY KAT SUBJECTIVE: The patient is seen and evaluated. Discussed with Dr. Kat. Discussed with the patient. Discussed with the nurse. REVIEW OF SYSTEMS: No nausea, vomiting, fever, chills, chest pain, or headache. Positional vertigo ALL 14 POINT ROS NEG UNLESS OTHERWISE NOTED PHYSICAL EXAMINATION: VITAL SIGNS: per chart GENERAL: Awake and alert. No acute distress. CV: S1 and S2. no s3, s4 CHEST: Equal expansion. Clear to auscultation. No acute distress. ABDOMEN: Soft and nontender. Bowel sounds positive. HEENT: Moist. No pallor. No JVD. MEDICATIONS: per chart LABORATORY STUDIES: per chart MICROBIOLOGY: Cultures negative so far. ASSESSMENT AND PLAN: 1. Respiratory failure. 2. Pneumonia, on admission. 3. History of lung cancer. Continue with antibiotics. Follow up CT as outpatient until total resolution. Discussed with staff. Continue to monitor the patient clinically and follow with the labs. carotid duplex planned for tomorrow Discussed with Dr. Kat in detail. Please refer to chart for more information. Genny Sweet MSN, LEASES AND LAND SUPERVISOR, [facility]- Anthony Kat M.D
--- NOTE | 2020-08-01 12:43 | NUR ---
Patient sitting up in chair just finished therapy and states that PT accidentally broke her phone when she placed the bedside table near pt as a courtesy because when I was in room right when pt finished ambulating in room . Patient when asked pt said no to leave it.
--- NOTE | 2020-08-01 13:00 | NUR ---
Patient sitting up in chair laughing and talking with daughter and family rounds done
--- NOTE | 2020-08-01 15:53 | NUR ---
Cartoid US done at bedside
--- NOTE | 2020-08-01 16:52 | NUR ---
Nutrition Screen Note RD Recommendation for Physician: -Continue regular diet Plan of Care: RD following, monitoring for tolerance and adequacy Nutrition reason for involvement: Length of stay Primary Diagnose(s): COPD exacerbation, pneumonia, respiratory failure, and sepsis PMH: COPD, hypertension, mitral valve, disease, non-small cell lung cancer, chronic respiratory failure, chronic systolic congestive heart failure. insomnia, TIA with bilateral peripheral vision loss and righthemiparesis, calcification of subclavian arteries, peptic ulcers, anxiety, cervical cancer, Montrell syndrome, migraines, osteoarthritis, scoliosis, seizures and reportedly antiepileptic medications make the seizures worse. Ht: 64 in Wt: 149 lb BMI: 25.6 kg/m2 IBW: [address] Assessment: (08/01/20) Chart reviewed. Labs and meds reviewed. Pt is a 64 year old female admitted with COPD exacerbation, pneumonia, respiratory failure, and sepsis. Attempted to speak to pt, but she was sleeping at time of visit. It is recorded that pt has been consuming 75-100% of meals during admission. There are no previous weights in chart. Will continue to monitor. Current Diet: regular diet Malnutrition Evaluation (08/01/20) The patient does not meet criteria for a specified degree of malnutrition at this time. Will re-evaluate at follow-up as appropriate. Diet Education Needs Assessment: Diet education not indicated. Nutrition Care Level: low Signed: Emily Walsh, RD, LD
[2020-08-01] MEDS: ATORVASTATIN 10 MG TAB PO SCH (21:42)
--- NOTE | 2020-08-01 21:44 | Progress Note ---
DATE: 07/31/2020 CONSULTING PHYSICIANS: 1. Dr. Shazia Serra with Infectious Disease. 2. Dr. Aylin Regalado with Psychiatry. 3. Dr. Flex Juarez with Pulmonology. 4. Dr. Viet Goldsmith with Gastroenterology. 5. Dr. Da Olivarez with Cardiology. SUBJECTIVE: The patient remarks since she was moved from ICU, bed 195 to [facility] unit 1, bed 106. She is "hot." She has left lower quadrant abdominal pain which is rated 6/10 on a 0-10 pain scale with sitting up and standing up. She states her last bowel movement was 10/12 prior to admission. Reports nausea at night and acid reflux. OBJECTIVE: VITAL SIGNS: Temperature 97.9, heart rate 84, blood pressure 155/89, respirations 21, and oxygen saturation 98%. Intake and output 2515 mL In and 2625 mL Out. GENERAL: In no acute distress. Alert and oriented x3. LUNGS: Diminished in the bases. HEENT: EOMI. Poor dentition. Oropharynx is clear. NECK: Supple. No lymphadenopathy. Thyromegaly, JVD. CARDIOVASCULAR: Regular rate and rhythm without murmur. ABDOMEN: Bowel sounds positive. Soft and nontender. EXTREMITIES: No pitting edema. No clubbing, cyanosis, or signs of DVT. NEUROLOGIC: GCS 15, nonfocal. LABORATORY DATA: No new labs today. Blood culture showed no growth after 5 days. IMAGING: No new imaging results. ASSESSMENT AND PLAN: 1. [id number] respiratory failure. Continue supplemental oxygen, which is currently 2 L via nasal cannula. Continue neb treatments. Pulmonology following. 2. Aspiration pneumonia with severe sepsis. Continue IV Merrem, vancomycin and fluconazole. Infectious Disease following. 3. Acute exacerbation of chronic obstructive pulmonary disease. Continue IV Solu-Medrol and neb treatments. 4. Anxiety, on Xanax. 5. Abdominal aortic stenosis/mesenteric occlusion. Cardiology following. Abdominal aortography planned. The patient may need stent. Carotid Doppler ultrasound done today shows possible evidence of significant carotid stenosis. Await final results. 6. Prophylaxis. Protonix and SCDs. 7. Inpatient billing code [id number]. Time spent 35 minutes. Dictated by Sebastian Coy NP MD THEODORE Ruelas/MODL /[id number]
[2020-08-01] MEDS: TEMAZEPAM 15 MG CAP PO PRN (22:23)
[2020-08-02] VITALS (18 sets, daily range): BP systolic 85–159; BP diastolic 60–91
[2020-08-02] MEDS: METOCLOPRAMIDE HCL 10 MG/2ML VIAL IV SCH ×5 (00:59→23:05)
[2020-08-02] MEDS: IPRATROPIUM BROMIDE 0.02% 2.5 ML NEB NEB SCH ×4 (01:15→18:30)
--- NOTE | 2020-08-02 02:55 | Consultation ---
DATE OF CONSULTATION: 07/29/2020 Psychiatric Consultation. DICTATED FOR: Aylin Regalado M.D. HISTORY OF PRESENT ILLNESS: The patient is a 64-year-old female went to the hospital for COPD exacerbation. Psychiatric station is called to evaluate the patient's mood. As per medical record, the patient has a history of COPD, hypertension, mitral valve disease, small cell lung cancer, chronic respiratory failure, chronic systolic congestive heart failure, insomnia, TIA, anxiety, peptic ulcer, hemiparesis, Montrell's syndrome, migraine, osteoarthritis, scoliosis, seizures. Upon evaluation today, the patient was found to be in the room. She is a little bit oriented to situation. She reports feeling very anxious due to her health. She also reports depression because of pain she has. She denies any suicidal or homicidal ideation. She denies any hallucination. She reports feeling hopeless and helpless at time. She complains of poor sleeping. She denies any appetite problem. She is not paranoid or delusional. PSYCHIATRIC HISTORY: The patient denies past psychiatric history, although, she reports taking Valium. As per record, the patient has a history of anxiety. The patient states she takes Valium for the last 6 years. She denies suicidal attempts. She denies alcohol and drug use. FAMILY HISTORY: Denies. SOCIAL HISTORY: The patient states she lives with her . MENTAL STATUS EXAM: The patient is an elderly female. Her mood is anxious. Affect is blunt. Psychomotor phase is passive. Denies suicidal or homicidal ideation. Denies any hallucination. Thought process is concrete. No adjustment with the family member appears to be grossly intact. CURRENT MEDICATIONS: 1. Vancomycin. 2. 3. Pantoprazole. 4. Mepyramine. 5. q.h.s. p.r.n. 6. Ondansetron. 7. Dexmedetomidine. 8. Benzonatate. 9. Norepinephrine. 10. Xopenex. 11. . 12. MiraLax. 13. Lactated Ringer. 14. Vitamin B12. CURRENT LABS: WBC 14.54, RBC 3.62, hemoglobin 12.1, and hematocrit 36.9, platelets 212. Sodium 139, potassium 4, chloride 101, CO2 of 27, BUN 21, creatinine 0.91. ASSESSMENT: Generalized anxiety disorder. PLAN: 1. Plan is to discontinue Valium. 2. Continue temazepam p.r.n. 3. Add Ativan 0.5 mg p.o. q.6 hours as needed. 4. Add BuSpar p.r.n. 5. Add Zoloft 25 mg p.o. b.i.d. 6. Monitor for moods. Thank you for this consultation. Dictated by Hue Tinoco PA-C MD DEVANTE HernándezV/MODL /[id number]
[2020-08-02] MEDS: MEROPENEM 1GM 100 ML IV SCH ×2 (04:00→13:56)
[2020-08-02] MEDS: PANTOPRAZOLE 40 MG 10ML VIAL IV SCH ×2 (04:03→17:47)
[2020-08-02 05:45] LABS: BASOPHILS % 0.1 % (0.0-1.0); HEMATOCRIT 38.8 % (34.2-44.1); LYMPHOCYTES % 7.1 % (18.0-39.1); MEAN CORPUSCULAR HEMOGLOBIN 33.5 pg (28-32); MEAN CORPUSCULAR HGB CONC 33.5 g/dL (31-35); MONOCYTES # (AUTO) 0.4 (0.2-0.8); MONOCYTES % 2.9 % (4.4-11.3); NEUTROPHILS # (AUTO) 12.3 (2.1-6.9); NEUTROPHILS % 88.1 % (38.7-80.0); PLATELET COUNT 224 x10e3/uL (140-360); RED BLOOD COUNT 3.88 x10e6/uL (3.6-5.1); RED CELL DISTRIBUTION WIDTH 13.4 % (11.7-14.4)
[2020-08-02] MEDS: VANCOMYCIN 1GM/NS 250 ML 250 ML IV SCH (05:54)
[2020-08-02] MEDS: TIOTROPIUM 18 MCG INH POWDER INH SCH (06:00)
[2020-08-02 06:38] LABS: ANION GAP 14.2 mmol/L (8-16); BLOOD UREA NITROGEN 22 mg/dL (7-26); BUN/CREATININE RATIO 26 (6-25); CALCIUM 8.8 mg/dL (8.4-10.2); CARBON DIOXIDE 29 mmol/L (22-29); CHLORIDE 100 mmol/L (98-107); CREATININE, SERUM 0.86 mg/dL (0.57-1.11); EST GLOMERULAR FILTRATION RATE > 60 ML/MIN (60-); GLUCOSE 159 mg/dL (74-118); MAGNESIUM 2.8 MG/DL (1.3-2.1); PHOSPHORUS 3.8 MG/DL (2.3-4.7); POTASSIUM 4.2 mmol/L (3.5-5.1); SODIUM 139 mmol/L (136-145)
[2020-08-02] MEDS: MIDODRINE HCL 5 MG TABLET PO SCH ×3 (08:00→17:47)
[2020-08-02] MEDS: LEVALBUTEROL HCL SOLN NEBU 0.63 MG/3 ML NEB INH PRN ×2 (08:29→14:15)
[2020-08-02] MEDS: POLYETHYLENE GLYCOL 3350 17 GM PACK PO SCH ×2 (09:00→16:52)
--- NOTE | 2020-08-02 09:20 | NUR ---
Patient left for angiogram, taken via bed. Tele monitor remains in place. Alert and oriented x4.
--- NOTE | 2020-08-02 10:27 | NUR ---
1026k Admission CCL RECOVERY NURSING NOTE: Received pt to room #10 Identifierx2,bedside report received from Demetri ZAVALETA. Alert oriented and appropriate, PERRLA, respirations even and unlabored to room air. Pulses x4 extremities equal and strong. Pedal pulses PT/DP X4 and Cap fill brisk < 3 sec. Tr band x2 (20cc in each) Skin warm and dry integrity appears D/I. IV 20g to left ac at 100cchr presents healthy w/o s/s of infiltration or complaint. Abdomen soft and supple. pt offered toileting, denies need to urinate or defecate. No personal affects with patient. no family at bedside. Pt verbalizes understanding of POC. Currently w/o complaint of pain or need. Tr band ok to move air 12noon(Bilateral tr bands) ds/rn
--- NOTE | 2020-08-02 12:00 | NUR ---
1200 Rt BILATERAL RADIAL Compression removal: Initial Cuff volume 12 cc PROXIMAL 12noon -2cc Removed No hematoma/bleeding noted with normal neurovascular function. 1215 -5cc Removed No hematoma/ bleeding noted with normal neurovascular function. 1230 -5cc Removed No hematoma/bleeding noted with normal neurovascular function. Air removal completed. RADIAL Compression removal: Initial Cuff volume 12 cc DISTAL 12n -2cc Removed No hematoma/bleeding noted with normal neurovascular function. 1215 -5 cc Removed No hematoma/ bleeding noted with normal neurovascular function. 1230 -5cc Removed No hematoma/bleeding noted with normal neurovascular function. Air removal completed. Stasis achieved sterile 2x2,Tegaderm, Coban dressing No hematoma, bleeding noted with normal neurovascular function.. Pt instructed on POC. Ds/Rn
--- NOTE | 2020-08-02 12:07 | Progress Note ---
DATE: 08/02/2020 CARDIOLOGY PROGRESS NOTE: SUBJECTIVE: Denies any chest pain or shortness of breath. OBJECTIVE: VITAL SIGNS: Temperature is 98.6, heart rate 73, respirations are 18, blood pressure is 124/80, and oxygen saturation is 96% on 2.5 L nasal cannula. GENERAL: Chronically ill-appearing, unkempt woman. CARDIOVASCULAR: Regular rate and rhythm. LUNGS: Diminished breath sounds at bases. ABDOMEN: Soft, nontender, and nondistended. EXTREMITIES: Diminished pulses. CARDIOVASCULAR MEDICATIONS: Reviewed. LABORATORY DATA: Reviewed. Peripheral angiography today showed occluded right subclavian, left subclavian, and right external iliac arteries. IMPRESSION: 1. Severe peripheral arterial disease. 2. Asymptomatic occlusion of the superior mesenteric artery. 3. Aortic occlusion. 4. Carotid artery stenosis. 5. History of cerebrovascular accident. 6. Bilateral subclavian stenosis. 7. Right external iliac stenosis. 8. Pneumonia. 9. Hypertension. 10. Tobacco abuse. 11. History of lung cancer, status post lobectomy. RECOMMENDATIONS: I was unable to perform adequate aortography today due to significant bilateral subclavian and iliac stenosis. We will obtain a CT angiogram of the abdomen and pelvis with runoffs. Continue current cardiovascular medications. Her vascular disease is likely chronic in nature and can be addressed as an outpatient. The patient states that she had an appointment with a vascular surgeon at [facility] and she already has her gold card. No further cardiac workup is required at this point in time other than a CT angiogram, which has been ordered. Arsen Peralta DO BM/MODL /[id number]
--- NOTE | 2020-08-02 12:18 | Operative Report ---
DATE OF PROCEDURE: 08/02/2020 SURGEON: Arsen Peralta DO PROCEDURES PERFORMED: 1. Conscious sedation, 30 minutes. 2. Ultrasound-guided arterial access. 3. Second order angiography of bilateral upper extremities. 4. Bilateral extremity angiography. PRE-PROCEDURE DIAGNOSIS: Peripheral arterial disease. POSTPROCEDURE DIAGNOSIS: Peripheral arterial disease. ESTIMATED BLOOD LOSS: Less than 10 mL. SPECIMENS REMOVED: None. PROCEDURE IN DETAIL: After informed consent was obtained, the patient was brought to the cardiac catheterization laboratory in a fasting and nonsedated state. Bilateral groins were prepped and draped in usual sterile fashion. Bilateral arms in the radial position were prepped and draped in usual sterile fashion. A 2% lidocaine was infiltrated over a bilateral anterior wrist for local anesthesia. The patient received fentanyl and midazolam administered by the quality lab technician nurse and her neurologic and physiologic status was monitored by myself and cath staff for 30 minutes. Using ultrasound guidance, bilateral radial arteries were accessed via modified Seldinger technique and a 5/6 slender sheath was placed. Next, angiography in the 2nd order position of the right upper extremity showed occluded subclavian artery. Next, second order angiography of the left upper extremity showed occlusion of the left subclavian artery. Next, I performed right lower extremity angiography which showed an occluded iliac artery on the right. The patient tolerated the procedure well. No immediate complications and transferred back to her room in stable condition. Arsen Peralta DO BM/MODL /[id number]
--- NOTE | 2020-08-02 12:30 | NUR ---
1230Report provided to Boogietal RN, review of procedural findings and medications given. Patient drowsy, easily aroused. maintains airway and room air saturations of 94-96%. No gross issues of pressure, pain, pallor or dysrhythmia. IV site patent. patient hemodynamically stable with hemostasis.. right TR band site w/o s/s of bleeding. patient transferred by bed.With telemetry transported to 106 -Monitor room given report. left room with Rn and LIMNOLOGIST at bedside Pt has copy of diagram and TR band teaching tool. Denies pain Tolerated po intake. Li cath da Addendum: 08/02/20 at 1848 by Vianney Ramos RN 1230 continuation of charting Li cath to bedside drain,Clear drainage.Back to baseline Orientation tito/zac
--- NOTE | 2020-08-02 13:15 | NUR ---
Patient returned from [facility] in stable condition. Access site to right groin, dressing in place, clean/dry/intact, no bleeding noted. Access to bilateral wrists wrapped with coband, clean/dry/intact. Vital signs remain stable. Patient on bedrest. Call light within reach.
[2020-08-02] MEDS ORDERED: BISACODYL 5 MG TAB EC PO ONE (14:00)
[2020-08-02] MEDS: ACETAMINOPHEN 325 MG TAB PO PRN ×2 (14:03→23:05)
[2020-08-02] MEDS: ASPIRIN 81 MG CHEW TAB PO SCH (14:03)
[2020-08-02] MEDS: DOCUSATE SODIUM 100 MG CAP PO SCH ×2 (14:03→17:47)
[2020-08-02] MEDS: SERTRALINE HCL 50 MG TAB PO SCH ×2 (14:04→17:47)
[2020-08-02] MEDS: CYANOCOBALAMIN INJ 1,000 MCG/ML VIAL IM SCH (14:06)
[2020-08-02] MEDS: FAMOTIDINE 20 MG/2 ML VIAL IV SCH ×2 (14:06→17:47)
[2020-08-02] MEDS: METHYLPREDNISOLONE SOD SUCC 40 MG/ML VIAL 1ML IV SCH ×2 (14:06→20:01)
[2020-08-02] MEDS: HEPARIN SOD (PORCINE) 5,000 UNIT/ML VIAL SC SCH (14:22)
--- NOTE | 2020-08-02 17:15 | NUR ---
INFECTIOUS DISEASE PROGRESS NOTE DR. ANTHONY KAT SUBJECTIVE: The patient is seen and evaluated. Discussed with Dr. Kat. Discussed with the patient. Discussed with the nurse. REVIEW OF SYSTEMS: No nausea, vomiting, fever, chills, chest pain, or headache. Positional vertigo ALL 14 POINT ROS NEG UNLESS OTHERWISE NOTED PHYSICAL EXAMINATION: VITAL SIGNS: per chart GENERAL: Awake and alert. No acute distress. CV: S1 and S2. no s3, s4 CHEST: Equal expansion. Clear to auscultation. No acute distress. ABDOMEN: Soft and nontender. Bowel sounds positive. HEENT: Moist. No pallor. No JVD. MEDICATIONS: per chart LABORATORY STUDIES: per chart MICROBIOLOGY: Cultures negative so far. ASSESSMENT AND PLAN: 1. Respiratory failure. 2. Pneumonia, on admission. 3. History of lung cancer. repeat labs in AM monitor off ABT Discussed with Dr. Kat in detail. Please refer to chart for more information. Genny Sweet MSN, CAMPUS ADMINISTRATIVE ASSISTANT, [facility]- Anthony Kat M.D
--- NOTE | 2020-08-02 18:58 | Diagnostic Imaging Report ---
EXAM: CTA Abdomen and Pelvis and Lower Extremity, WITH Contrast. INDICATION: Peripheral arterial disease. COMPARISON: TECHNIQUE: Multidetector [address] scanning with 2 mm cuts of the abdomen, pelvis and bilateral thighs after administration of 100 cc IV of Omnipaque 350. Coronal and sagittal multiplanar, MIP thin and thick cuts, and 3-D volume-rendering reformations were obtained. In addition, delay images of the lower extremities below the knee were obtained. IV CONTRAST: 150 mL of Omnipaque 350 ORAL CONTRAST: None COMPLICATIONS: None RADIATION DOSE: Total DLP: 755 mGy*cm Estimated effective dose: (DLP x 0.015 x size factor) mSv CTDIvol None.has been reviewed. It is below the limits set by the Radiation Protocol Committee (RPC). FINDINGS: Potential study limitations: None. VASCULAR WITH ADVANCED 3-D OFF-LINE POSTPROCESSING: The abdominal aorta is normal in course, caliber, and contour. There is no acute aortic pathology. There is calcified and noncalcified of atherosclerotic plaque resulting in multifocal mild stenosis. Thoracic aorta measures: 2 cm at the distal thoracic segment. The abdominal aorta measures: 2.1 cm at the supramesenteric segment 1.8 cm at the mesenteric segment 1.7 cm at the renal segment 1.5 cm at the mid infrarenal segment 1.2 cm at the aortic bifurcation 0.5 cm at the right common iliac artery . There are calcified and noncalcified atherosclerotic plaque resulting in moderate to severe multifocal stenosis throughout its course. 0.6 cm at the right external iliac artery. There is severe multifocal stenosis from noncalcified atherosclerotic plaque most pronounced at the origin. There are calcified and noncalcified atherosclerotic plaques resulting in complete occlusion at origin with distal reconstitution and moderate multifocal stenosis throughout the course of the right internal iliac artery. 0.5 cm at the right common femoral artery. 0.7 cm at the left common iliac artery. There are calcified and noncalcified atherosclerotic plaque resulting in moderate multifocal stenosis throughout its course. 0.6 cm at the left external iliac artery. There are calcified and noncalcified atherosclerotic plaque resulting in mild to moderate multifocal stenosis throughout its course. There are calcified and noncalcified atherosclerotic plaque resulting in moderate multifocal stenosis throughout the course of the left internal iliac artery. 0.5 cm at the left common femoral artery. The celiac axis, SMA, and CHIDI are patent with calcified and noncalcified atherosclerotic plaques resulting in mild to moderate multifocal stenosis. There are single renal arteries bilaterally, both of which appear patent. PELVIS VESSELS: See above. RIGHT LOWER EXTREMITY: Right common femoral, profundus femoral, superficial femoral, and popliteal arteries are patent. There is a patent trifurcation with both anterior and posterior tibial arteries supply the foot. LEFT LOWER EXTREMITY: Left common femoral, profundus femoral, superficial femoral, and popliteal arteries are patent. There is a patent trifurcation with both anterior and posterior tibial arteries supply the foot. Although the anterior tibial arteries have diminished enhancement distally, this is likely due to phase of contrast. NON-VASCULAR FINDINGS: LOWER CHEST: The heart is mildly enlarged. There is diffuse interlobular septal thickening and bibasilar atelectasis. ABDOMEN: There is hepatic steatosis. There are multiple punctate calcifications throughout the liver, likely sequela of prior granulomatous infection. The gallbladder, spleen, and pancreas appear normal. The adrenal glands appear normal. Both kidneys are normal in size, shape, and density. There is no abnormal mass or hydronephrosis. PELVIS: There is a Li catheter within the decompressed urinary bladder. There is no significant retroperitoneal adenopathy. No free fluid or free air within the abdomen or pelvis. The bowel appears unremarkable. The urinary bladder appears normal. BONES/SOFT TISSUES: No acute osseous abnormalities. There are multiple granulomas in the right gluteal subcutaneous fat the largest measuring up to 4.8 x 1.8 cm. IMPRESSION: 1. Calcified/noncalcified of atherosclerotic plaque resulting in multifocal mild stenosis of the abdominal aorta. No evidence of aneurysm. 2. Calcified/noncalcified atherosclerotic plaque resulting in moderate to severe multifocal stenosis throughout the right common iliac artery. 3. Calcified/noncalcified atherosclerotic plaque resulting in severe multifocal stenosis of the right external iliac artery. 4. Calcified/noncalcified atherosclerotic plaques resulting in complete occlusion at origin with distal reconstitution and moderate multifocal stenosis throughout the course of the right internal iliac artery. There is also moderate multifocal stenosis throughout the course of the left internal iliac artery. 5. The celiac axis, SMA, and CHIDI are patent with calcified and noncalcified atherosclerotic plaques resulting in mild to moderate multifocal stenosis. 6. Cardiomegaly with pulmonary edema. 7. Hepatic steatosis. Signed by: Sergei Juan MD on 08/02/2020 6:54 PM
--- NOTE | 2020-08-02 20:00 | NUR ---
Received change of shift report from AM nurses. Walking rounds completed.
[2020-08-02] MEDS: ATORVASTATIN 10 MG TAB PO SCH (20:01)
[2020-08-02] MEDS: DIPHENHYDRAMINE HCL 25 MG CAP PO PRN (23:05)
--- NOTE | 2020-08-03 | NUR ---
Dr Goldsmith on the floor to see patient. Patient with c/o no BM for several days. Meds given patient to help with BM. Continue monitor. Patient requested pain and sleep meds. Meds given as ordered by .
[2020-08-03 00:05] VITALS: BP 141/76
[2020-08-03] MEDS: IPRATROPIUM BROMIDE 0.02% 2.5 ML NEB NEB SCH ×3 (01:00→13:50)
[2020-08-03] MEDS ORDERED: MAGNESIUM HYDROXIDE 30 ML UDC PO ONE (01:00)
--- NOTE | 2020-08-03 03:01 | NUR ---
Patient resting quitly at this time. Continue monitor.
[2020-08-03] MEDS: PANTOPRAZOLE 40 MG 10ML VIAL IV SCH (03:57)
[2020-08-03 05:18] VITALS: BP 137/79
--- NOTE | 2020-08-03 05:18 | NUR ---
Blood drawn from Picc line and flushed with 10cc of NS. Blood given to lab aid. for processing.
[2020-08-03 05:51] LABS: BASOPHILS % 0.1 % (0.0-1.0); EOSINOPHILS % 0.1 % (0.0-6.0); HEMATOCRIT 39.6 % (34.2-44.1); HEMOGLOBIN 13.2 g/dL (12.0-16.0); LYMPHOCYTES # (AUTO) 1.4 (1.0-3.2); LYMPHOCYTES % 10.5 % (18.0-39.1); MEAN CORPUSCULAR HEMOGLOBIN 33.7 pg (28-32); MEAN CORPUSCULAR HGB CONC 33.3 g/dL (31-35); MONOCYTES # (AUTO) 0.7 (0.2-0.8); MONOCYTES % 5.1 % (4.4-11.3); NEUTROPHILS # (AUTO) 11.1 (2.1-6.9); NEUTROPHILS % 82.4 % (38.7-80.0); PLATELET COUNT 240 x10e3/uL (140-360); RED BLOOD COUNT 3.92 x10e6/uL (3.6-5.1); RED CELL DISTRIBUTION WIDTH 13.3 % (11.7-14.4)
[2020-08-03] MEDS: METOCLOPRAMIDE HCL 10 MG/2ML VIAL IV SCH (06:00)
[2020-08-03 06:19] LABS: ALANINE AMINOTRANSFERASE 14 IU/L (0-55); ALBUMIN 3.8 g/dL (3.5-5.0); ALBUMIN/GLOBULIN RATIO 1.2 (0.8-2.0); ALKALINE PHOSPHATASE 58 IU/L (40-150); BLOOD UREA NITROGEN 25 mg/dL (7-26); BUN/CREATININE RATIO 28 (6-25); CARBON DIOXIDE 29 mmol/L (22-29); CHLORIDE 97 mmol/L (98-107); CREATININE, SERUM 0.88 mg/dL (0.57-1.11); EST GLOMERULAR FILTRATION RATE > 60 ML/MIN (60-); GLUCOSE 139 mg/dL (74-118); SODIUM 139 mmol/L (136-145)
[2020-08-03] MEDS ORDERED: PROVENTIL HFA6.7 GM INH (08:03)
[2020-08-03] MEDS ORDERED: LIPITOR10 MG PO (08:03)
[2020-08-03] MEDS ORDERED: BUSPIRONE HCL5 MG PO (08:03)
[2020-08-03] MEDS ORDERED: SPIRIVA18 MCG INH (08:03)
[2020-08-03] MEDS ORDERED: PANTOPRAZOLE SO40 MG PO (08:03)
[2020-08-03] MEDS ORDERED: MIRALAX17 GM PO (08:03)
[2020-08-03] MEDS ORDERED: MIDODRINE HCL5 MG PO (08:03)
[2020-08-03] MEDS ORDERED: ASPIRIN CHEW81 MG PO ×2 (08:03→08:10)
[2020-08-03] MEDS ORDERED: ZOLOFT50 MG PO ×2 (08:03→08:10)
[2020-08-03] MEDS ORDERED: REGLAN10 MG PO (08:03)
[2020-08-03 08:15] VITALS: BP 152/89
[2020-08-03] MEDS ORDERED: CITRATE OF MAGNESIA 300ML BOTTLE PO ONE (08:35)
[2020-08-03] MEDS ORDERED: ONDANSETRON HCL 4 MG ORAL DISINTEGRATING TAB PO PRN (08:45)
[2020-08-03] MEDS: FAMOTIDINE 20 MG/2 ML VIAL IV SCH (08:47)
[2020-08-03] MEDS: MIDODRINE HCL 5 MG TABLET PO SCH ×2 (08:47→12:00)
[2020-08-03] MEDS: CYANOCOBALAMIN INJ 1,000 MCG/ML VIAL IM SCH (08:47)
[2020-08-03] MEDS: METHYLPREDNISOLONE SOD SUCC 40 MG/ML VIAL 1ML IV SCH (08:48)
[2020-08-03] MEDS: POLYETHYLENE GLYCOL 3350 17 GM PACK PO SCH (08:48)
[2020-08-03] MEDS: DOCUSATE SODIUM 100 MG CAP PO SCH (08:48)
[2020-08-03] MEDS: ASPIRIN 81 MG CHEW TAB PO SCH (08:48)
[2020-08-03] MEDS: SERTRALINE HCL 50 MG TAB PO SCH (08:48)
[2020-08-03 08:59] VITALS: BP 152/89
--- NOTE | 2020-08-03 11:17 | NUR ---
Home O2 eval was done. Pt 83% on RA. Received order to set up home O2. CM to pt's bedside. Pt states she already has oxygen at home. Uses 2lpm /. Has 2 tanks at home and concentrator. Gets it thru [employer]. Pt states she will have her bring portable tank here for discharge. MEGHANN Hannah was updated.
[2020-08-03] MEDS ORDERED: METOCLOPRAMIDE HCL 10 MG TAB PO SCH (12:00)
[2020-08-03 12:30] VITALS: BP 141/95
[2020-08-03] MEDS ORDERED: SERTRALINE HCL 50 MG TAB PO SCH (12:30)
[2020-08-03] MEDS: ACETAMINOPHEN 325 MG TAB PO PRN (12:56)
[2020-08-03] MEDS ORDERED: SERTRALINE HCL 50 MG TAB PO ONE (13:30)
--- NOTE | 2020-08-03 14:17 | NUR ---
INFECTIOUS DISEASE PROGRESS NOTE DR. ANTHONY KAT SUBJECTIVE: The patient is seen and evaluated. Discussed with Dr. Kat. Discussed with the patient. Discussed with the nurse. REVIEW OF SYSTEMS: No nausea, vomiting, fever, chills, chest pain, or headache. Positional vertigo ALL 14 POINT ROS NEG UNLESS OTHERWISE NOTED PHYSICAL EXAMINATION: VITAL SIGNS: per chart GENERAL: Awake and alert. No acute distress. CV: S1 and S2. no s3, s4 CHEST: Equal expansion. Clear to auscultation. No acute distress. ABDOMEN: Soft and nontender. Bowel sounds positive. HEENT: Moist. No pallor. No JVD. MEDICATIONS: per chart LABORATORY STUDIES: per chart MICROBIOLOGY: Cultures negative so far. ASSESSMENT AND PLAN: 1. Respiratory failure. 2. Pneumonia, on admission. 3. History of lung cancer. overall improvement. Home oxygen delivered. Pt doing well Some complaints of mouth pain, given swish and swallow and 5 days of Diflucan See me in clinic next week Discussed with Dr. Kat in detail. Please refer to chart for more information. Genny Sweet MSN, [employer], [facility]- Anthony Kat M.D
--- NOTE | 2020-08-03 14:38 | Progress Note ---
DATE: 08/03/2020 Psychiatric Progress Note SUBJECTIVE: The patient is evaluated and events noted. The patient is in the room. She is alert, awake, and oriented to situation. She is out of ICU. She is on the medical floor. She reports feeling very anxious and depressed. She complained of poor sleep, sleeping about 1 or 2 hours at night. She is also reporting issue with appetite. She is denying any thought of hurting herself. She denies any side effects to medications. ASSESSMENT: 1. Generalized anxiety disorder. 2. Adjustment disorder with mixed mood. PLAN: 1. Continue with BuSpar p.r.n. 2. Change Zoloft to 50 mg p.o. daily. 3. Continue Ativan as needed. 4. Add Remeron 15 mg p.o. at bedtime. 5. Monitor for mood. 6. Supportive therapy. Dictated by Hue Tinooc PA-C Aylin Regalado MD QTV/MODL /[id number]
--- NOTE | 2020-08-03 15:45 | NUR ---
Left upper arm picc removed, tip intact at 40c. no bleeding observed and patient tolerated well
[2020-08-03 15:48] VITALS: BP 131/87
--- NOTE | 2020-08-03 15:49 | Discharge Summary ---
ADMISSION DIAGNOSES: 1. Plbev-ai-kivelie respiratory failure due to chronic obstructive pulmonary disease with BiPAP salvage. 2. Aspiration pneumonia with severe sepsis, present on admission. 3. Chronic obstructive pulmonary disease with acute exacerbation. 4. Chronic systolic congestive heart failure with mitral valve disease. 5. Bilateral lower quadrant abdominal pain with nausea and diarrhea. 6. Vceap-ta-dwkgtha anxiety. 7. 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 8. History of transient ischemic attack with right-sided hemiparesis. DISCHARGE DIAGNOSES: 1. Kmpfl-ks-wqhhdyy respiratory failure due to chronic obstructive pulmonary disease with BiPAP salvage. 2. Aspiration pneumonia with severe sepsis, present on admission. 3. Chronic obstructive pulmonary disease with acute exacerbation. 4. Chronic systolic congestive heart failure with mitral valve disease. 5. Bilateral lower quadrant abdominal pain with nausea and diarrhea. 6. Dneou-ei-gpuzuly anxiety. 7. 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 8. History of transient ischemic attack with right-sided hemiparesis. 9. Rule out aspiration. 10. Bilateral lower extremity peripheral arterial disease. 11. Constipation. 12. Significant carotid stenosis. HISTORY: COPD, hypertension, mitral valve disease, non-small cell lung cancer, chronic systolic CHF, insomnia, TIA with bilateral peripheral vision loss and right hemiparesis, calcification of subclavian artery, peptic ulcer, anxiety, cervical cancer, Montrell syndrome, migraines, osteoarthritis, scoliosis, and seizures. SURGICAL HISTORY: Hysterectomy and right upper lobe lobectomy for Pancoast tumor. FAMILY HISTORY: The patient's dad had leukemia and the patient's mom had heart disease. SOCIAL HISTORY: The patient is a former smoker and she no longer uses alcohol. HOSPITAL COURSE: A 64-year-old female admits with complaints of shortness of breath and wheezing about one hour prior to arrival, but apparently she has been having shortness of breath above baseline for about a month. In the ER, she is requiring BiPAP and was moved to ICU on admission. She has a followup appointment with Vascular Surgery at [facility] due to mitral valve disease as well as calcifications of her subclavian arteries. She follows Dr. Dominique Ham at [facility]. Like previously stated initially, the patient was on BiPAP and moved to the ICU. Chest x-ray showed multifocal interstitial airspace opacities with chronic-appearing scarring. CT of the chest showed no PE or signs of right heart strain, multifocal ground-glass opacities within the lingula, right and left lower lobe, concerning for atypical multifocal infection. Coronavirus was negative. Flu was negative. EKG showed sinus tachycardia. Echo showed an EF of 50%. Bilateral carotid Doppler showed significant stenosis, none of the internal carotid. KUB on 07/27, showed constipation. Modified barium swallow was negative for aspiration. Followup chest x-ray a few days later showed slightly improved airspace opacities bilaterally. The patient was then taken for a lower extremity angiogram, which showed occluded subclavian artery on the right upper extremity and left upper extremity, and on the right lower extremity showed an occluded iliac artery on the right. Blood cultures were negative. The patient required oxygen as her SpO2 was 83% on room air. She apparently uses oxygen already at home. So she will discharge and follow up with [facility] as discussed and primary care in 1 to 2 days. The patient understands instructions and agrees to plan. She was given new prescriptions for albuterol HFA, aspirin, Lipitor, BuSpar, Reglan, midodrine, Protonix, MiraLAX, Zoloft, and Spiriva. Dictated by Aida Figueroa NP MD JUNIOR Ruelas/CHERYL /[id number]
[2020-08-03] MEDS ORDERED: PANTOPRAZOLE SOD 40 MG TABEC PO SCH (16:30)
[2020-08-03] MEDS ORDERED: FAMOTIDINE 20 MG TAB PO SCH (16:30)
[2020-08-03] MEDS ORDERED: BUSPIRONE HCL 5 MG TAB PO SCH (17:00)
[2020-08-03] MEDS ORDERED: TRAZODONE HCL 50 MG TAB PO SCH (21:00)
[2020-08-03] MEDS ORDERED: MIRTAZAPINE 15 MG TAB PO SCH ×2 (21:00)
[2020-08-04] MEDS ORDERED: SERTRALINE HCL 50 MG TAB PO SCH (09:00)
--- NOTE | 2020-08-04 11:40 | Progress Note ---
DATE: 08/01/2020 Psychiatric SUBJECTIVE: The patient is evaluated and events noted. The patient is in the room. She is doing fair. She reports intermittent sleep issues. She denies any homicidal ideation. She denies any hallucination. She denies any side effects to medication. ASSESSMENT: Generalized anxiety disorder. PLAN: 1. Continue with Zoloft. 2. Continue Ativan p.r.n., BuSpar p.r.n. 3. Monitor for mood. 4. Supportive therapy. 5. Continue with temazepam p.r.n. Dictated by Hue Tinoco PA-C MD DEVANTE HernándezV/MODL /[id number]
== END 2020-08-03 16:00 | disposition home or self-care (01) | DRG 871 ==
LOC: ER 05:00 → ERHOLD 07:32 → ICU 09:56 → MED/SURG 08-01 18:57
PROVIDERS: ADMIT Internal Medicine; ATTEND Internal Medicine
PROC: 5A09357 Assistance with Respiratory Ventilation, Less than 24 Consecutive Hours, Continuous Positive Airway Pressure (ICD-10-PCS; principal; 2020-07-26)
PROC: 02HV33Z Insertion of Infusion Device into Superior Vena Cava, Percutaneous Approach (ICD-10-PCS; 2020-07-26)
PROC: B548ZZA Ultrasonography of Superior Vena Cava, Guidance (ICD-10-PCS; 2020-07-26)
PROC: 3E043XZ Introduction of Vasopressor into Central Vein, Percutaneous Approach (ICD-10-PCS; 2020-07-26)
PROC: B31K1ZZ Fluoroscopy of Bilateral Upper Extremity Arteries using Low Osmolar Contrast (ICD-10-PCS; 2020-08-02)
PROC: B41F1ZZ Fluoroscopy of Right Lower Extremity Arteries using Low Osmolar Contrast (ICD-10-PCS; 2020-08-02)
PROC: B410ZZZ Fluoroscopy of Abdominal Aorta (ICD-10-PCS; 2020-08-02)
DX: A41.9 Sepsis, unspecified organism (principal); R65.21 Severe sepsis with septic shock; J96.20 Acute and chronic respiratory failure, unspecified whether with hypoxia or hypercapnia; J69.0 Pneumonitis due to inhalation of food and vomit; J44.1 Chronic obstructive pulmonary disease with (acute) exacerbation; I50.22 Chronic systolic (congestive) heart failure; I69.851 Hemiplegia and hemiparesis following other cerebrovascular disease affecting right dominant side; K55.1 Chronic vascular disorders of intestine; Z85.118 Personal history of other malignant neoplasm of bronchus and lung; Z88.1 Allergy status to other antibiotic agents; Z88.0 Allergy status to penicillin; Z88.8 Allergy status to other drugs, medicaments and biological substances; I05.9 Rheumatic mitral valve disease, unspecified; Z87.891 Personal history of nicotine dependence; I11.0 Hypertensive heart disease with heart failure; Z82.49 Family history of ischemic heart disease and other diseases of the circulatory system; Z83.6 Family history of other diseases of the respiratory system; Z84.89 Family history of other specified conditions; Z80.6 Family history of leukemia; F41.9 Anxiety disorder, unspecified; K59.00 Constipation, unspecified; Z90.2 Acquired absence of lung [part of]; R00.1 Bradycardia, unspecified; F41.1 Generalized anxiety disorder; I35.0 Nonrheumatic aortic (valve) stenosis; I70.203 Unspecified atherosclerosis of native arteries of extremities, bilateral legs; F43.23 Adjustment disorder with mixed anxiety and depressed mood; I65.29 Occlusion and stenosis of unspecified carotid artery; Z11.59 Encounter for screening for other viral diseases
CPT/HCPCS: 36415; 36569; 36600; 51700; 71045; 71260; 74018; 74230; 75635; 80048; 80053; 80061; 80202; 81001; 82550; 82553; 82607; 82728; 82746; 82805; 83036; 83540; 83605; 83735; 83880; 84100; 84443; 84466; 84484; 85025; 85045; 87040; 87400; 93005; 93306; 93880; 94640; 94660; 97139; 99152; 99153; 99285; C1769; C1887; J0456; J0692; J1644; J2405; J2920; J2930; J3370; J3420; J7030; J7121; Q9967

== ENCOUNTER 2020-08-27 01:50 | Inpatient (IN) | payer SELFPAY ==
[~2020-08-27] VITALS: Ht 162.6 cm; Wt 67.6 kg
[~2020-08-27 01:50] MED LIST: ASPIRIN CHEW81 MG PO; BUSPIRONE HCL5 MG PO; DIAZEPAM5 MG PO; LIPITOR10 MG PO; MIDODRINE HCL5 MG PO; MIRALAX17 GM PO; PANTOPRAZOLE SO40 MG PO; PROVENTIL HFA6.7 GM INH; REGLAN10 MG PO; SPIRIVA18 MCG INH; ZOLOFT50 MG PO
[2020-08-27] MEDS ORDERED: ASPIRIN 81 MG CHEW TAB PO ONE (02:00)
[2020-08-27 03:04] LABS: BASOPHILS # (AUTO) 0.1 (0.0-0.1); BASOPHILS % 0.5 % (0.0-1.0); EOSINOPHILS % 0.3 % (0.0-6.0); HEMATOCRIT 39.1 % (34.2-44.1); LYMPHOCYTES # (AUTO) 2.2 (1.0-3.2); LYMPHOCYTES % 16.6 % (18.0-39.1); MEAN CORPUSCULAR HEMOGLOBIN 33.7 pg (28-32); MEAN CORPUSCULAR HGB CONC 33.2 g/dL (31-35); MEAN CORPUSCULAR VOLUME 101.3 fL (81-99); MONOCYTES # (AUTO) 0.9 (0.2-0.8); MONOCYTES % 6.7 % (4.4-11.3); NEUTROPHILS # (AUTO) 8.9 (2.1-6.9); NEUTROPHILS % 68.4 % (38.7-80.0); PLATELET COUNT 228 x10e3/uL (140-360); RED BLOOD COUNT 3.86 x10e6/uL (3.6-5.1); RED CELL DISTRIBUTION WIDTH 14.8 % (11.7-14.4)
[2020-08-27 03:21] LABS: ALBUMIN 3.7 g/dL (3.5-5.0); ALBUMIN/GLOBULIN RATIO 1.1 (0.8-2.0); ANION GAP 19.8 mmol/L (8-16); CALCIUM 9.5 mg/dL (8.4-10.2); CREATININE, SERUM 1.1 mg/dL (0.57-1.11); POTASSIUM 3.8 mmol/L (3.5-5.1)
[2020-08-27 03:27] LABS: CREATINE KINASE MB 2.3 ng/mL (0-5.0)
[2020-08-27] MEDS ORDERED: SODIUM CHLORIDE 0.9% 1000ML 1,000 ML IV ONE (04:30)
[2020-08-27] MEDS ORDERED: ONDANSETRON HCL INJ 2MG/ML 2ML 2 MG/ML VIAL IV PRN (05:45)
[2020-08-27] MEDS ORDERED: MORPHINE SULFATE INJ 4 MG/ML INJ 1ML IV PRN (05:45)
[2020-08-27] MEDS: SODIUM CHLORIDE 0.9% 1000ML 1,000 ML IV SCH ×2 (06:30→08:19)
[2020-08-27 08:00] VITALS: BP 122/80
[2020-08-27 08:21] VITALS: BP 122/80
[2020-08-27] MEDS ORDERED: SODIUM CHLORIDE 0.9% 50ML 50 ML ONE (08:35)
[2020-08-27] MEDS ORDERED: IOPAMIDOL 370 MG/ML 200 ML INFUS..BTL INJ ONE (08:36)
[2020-08-27] MEDS ORDERED: AMIODARONE HCL200 MG PO (08:50)
[2020-08-27] MEDS ORDERED: DIGOXIN125 MCG PO (08:53)
[2020-08-27] MEDS ORDERED: PREDNISONE20 MG PO (08:54)
[2020-08-27] MEDS ORDERED: XARELTO20 MG (08:55)
[2020-08-27] MEDS ORDERED: LORAZEPAM 0.5 MG TAB PO PRN (09:00)
[2020-08-27] MEDS ORDERED: TESSALON PERLE100 MG PO (09:12)
[2020-08-27] MEDS ORDERED: PREDNISONE 20 MG TAB PO SCH (09:30)
[2020-08-27] MEDS: ACETAMINOPHEN 325 MG TAB PO PRN ×3 (09:47→21:02)
[2020-08-27] MEDS: DIGOXIN 0.125 MG TAB PO SCH (09:47)
[2020-08-27] MEDS: BUSPIRONE HCL 5 MG TAB PO SCH ×2 (09:47→16:14)
[2020-08-27] MEDS: AMIODARONE HCL 200 MG TAB PO SCH (09:47)
[2020-08-27] MEDS: RIVAROXABAN 20 MG TABLET PO SCH (09:47)
[2020-08-27] MEDS: PANTOPRAZOLE SOD 40 MG TABEC PO SCH (09:49)
[2020-08-27] MEDS ORDERED: TIOTROPIUM 18 MCG INH POWDER INH SCH (10:00)
[2020-08-27] MEDS ORDERED: DIPHENHYDRAMINE HCL 25 MG CAP PO PRN (10:15)
[2020-08-27] MEDS: BENZONATATE 100 MG CAP PO PRN ×2 (11:16→21:02)
[2020-08-27 11:51] VITALS: BP 94/59
[2020-08-27 11:56] LABS: CREATINE KINASE MB 2.9 ng/mL (0-5.0)
[2020-08-27] MEDS: ALBUTEROL/IPRATROPIUM 3 ML NEB NEB PRN ×2 (14:15→19:50)
[2020-08-27 16:05] VITALS: BP 101/67
[2020-08-27] MEDS: METHYLPREDNISOLONE SOD SUCC 40 MG/ML VIAL 1ML IV SCH (20:35)
[2020-08-27] MEDS ORDERED: ATORVASTATIN 10 MG TAB PO SCH (21:00)
[2020-08-27 21:04] VITALS: BP 104/64
[2020-08-27 21:11] VITALS: BP 104/64
[2020-08-28 01:15] VITALS: BP 117/79
[2020-08-28] MEDS: ALBUTEROL/IPRATROPIUM 3 ML NEB NEB PRN ×2 (01:30→07:20)
[2020-08-28] MEDS: ACETAMINOPHEN 325 MG TAB PO PRN (04:54)
[2020-08-28 05:39] VITALS: BP 115/70
[2020-08-28 05:54] LABS: BASOPHILS % 0.3 % (0.0-1.0); HEMATOCRIT 39.3 % (34.2-44.1); HEMOGLOBIN 12.4 g/dL (12.0-16.0); LYMPHOCYTES # (AUTO) 0.7 (1.0-3.2); LYMPHOCYTES % 4.8 % (18.0-39.1); MEAN CORPUSCULAR HEMOGLOBIN 33.1 pg (28-32); MEAN CORPUSCULAR HGB CONC 31.6 g/dL (31-35); MEAN CORPUSCULAR VOLUME 104.8 fL (81-99); MONOCYTES # (AUTO) 0.2 (0.2-0.8); MONOCYTES % 1.6 % (4.4-11.3); NEUTROPHILS # (AUTO) 13.5 (2.1-6.9); NEUTROPHILS % 87.5 % (38.7-80.0); PLATELET COUNT 160 x10e3/uL (140-360); RED BLOOD COUNT 3.75 x10e6/uL (3.6-5.1); RED CELL DISTRIBUTION WIDTH 14.8 % (11.7-14.4)
[2020-08-28 06:22] LABS: ALANINE AMINOTRANSFERASE 11 IU/L (0-55); ALBUMIN 3.4 g/dL (3.5-5.0); ALBUMIN/GLOBULIN RATIO 1.1 (0.8-2.0); ALKALINE PHOSPHATASE 49 IU/L (40-150); ANION GAP 21.1 mmol/L (8-16); BLOOD UREA NITROGEN 19 mg/dL (7-26); BUN/CREATININE RATIO 23 (6-25); CALCIUM 8.7 mg/dL (8.4-10.2); CARBON DIOXIDE 21 mmol/L (22-29); CHLORIDE 102 mmol/L (98-107); CREATININE, SERUM 0.84 mg/dL (0.57-1.11); EST GLOMERULAR FILTRATION RATE > 60 ML/MIN (60-); GLUCOSE 195 mg/dL (74-118); POTASSIUM 4.1 mmol/L (3.5-5.1); SODIUM 140 mmol/L (136-145)
[2020-08-28] MEDS: BUSPIRONE HCL 5 MG TAB PO SCH (07:56)
[2020-08-28] MEDS: RIVAROXABAN 20 MG TABLET PO SCH (07:56)
[2020-08-28] MEDS: PANTOPRAZOLE SOD 40 MG TABEC PO SCH (07:56)
[2020-08-28] MEDS: AMIODARONE HCL 200 MG TAB PO SCH (07:56)
[2020-08-28] MEDS: METHYLPREDNISOLONE SOD SUCC 40 MG/ML VIAL 1ML IV SCH (07:56)
[2020-08-28 08:10] VITALS: BP_SYST 133; BP_SYST 169; BP_DIAS 86; BP_DIAS 91
[2020-08-28] MEDS: DIGOXIN 0.125 MG TAB PO SCH (08:12)
[2020-08-28 08:13] VITALS: BP 133/91
== END 2020-08-28 09:10 | disposition home or self-care (01) | DRG 191 ==
LOC: ER 01:55 → ERHOLD 05:40 → ER 07:33 → MED/SURG2 08:14
PROVIDERS: ADMIT Family Medicine; ATTEND Family Medicine
DX: J44.1 Chronic obstructive pulmonary disease with (acute) exacerbation (principal); I50.22 Chronic systolic (congestive) heart failure; Z85.118 Personal history of other malignant neoplasm of bronchus and lung; I05.9 Rheumatic mitral valve disease, unspecified; I11.0 Hypertensive heart disease with heart failure; Z90.2 Acquired absence of lung [part of]; I48.91 Unspecified atrial fibrillation; F41.9 Anxiety disorder, unspecified; K20.90 Esophagitis, unspecified without bleeding; Z20.828 Contact with and (suspected) exposure to other viral communicable diseases; I70.0 Atherosclerosis of aorta
CPT/HCPCS: 36415; 71045; 71260; 80053; 82550; 82553; 83880; 84484; 85025; 85379; 93005; 93306; 94640; 99284; J2920; J7030; J7512; Q9967; U0002